=== PATIENT | female | born 1960 | race Caucasian/White ===

== ENCOUNTER 2017-07-07 07:59 | Day surgery (SDC) | payer BC ==
[~2017-07-07 07:59] MED LIST: Lactated Ringers 1,000 ML IV SCH; Lidocaine 1%/Sod Bicarbonate in NS 8.4% 1 ML Syringe PRN; Propofol 200 MG/20 ML SDV ONE; Sodium Chloride 0.9% 10 ML Syringe FLUSH PRN; fentaNYL 100 MCG/2 ML SDV ONE
--- NOTE | 2017-07-07 08:33 | PCM.PREANE ---
Preanesthetic Assessment - Procedure Proposed Procedure: Diagnostic EGD - Anesthesia/Transfusion/Family Hx Anesthesia History: Prior Anesthesia Without Reaction Family History of Anesthesia Reaction: No Transfusion History: No Prior Transfusion(s) - Review of Systems General: No Symptoms Pulmonary: No Symptoms Cardiovascular: No Symptoms Gastrointestinal: Other (GERD) Neurological: Headache (occasional ) Other: Reports: None, Depression, Anxiety - Physical Assessment NPO Status Date: 07/06/17 NPO Status Time: 20:00 O2 Sat by Pulse Oximetry: 97 Respiratory Rate: 16 Vital Signs: Last Vital Signs Temp 36.6 C 07/07/17 08:05 Pulse 66 07/07/17 08:05 Resp 16 07/07/17 08:05 BP 119/76 07/07/17 08:05 Pulse Ox 97 07/07/17 08:05 Height: 1.68 m Weight: 88.541 kg ASA Class: 2 Mental Status: Alert & Oriented x3 Airway Class: Mallampati = 2 Dentition: Reports: Dentures (upper ) Thyro-Mental Finger Breadths: 3 ROM/Head Extension: Full Lungs: Clear to Auscultation, Normal Respiratory Effort Cardiovascular: Regular Rate, Regular Rhythm - Allergies Allergies/Adverse Reactions: Allergies Allergy/AdvReac Type Severity Reaction Status Date / Time Sulfa (Sulfonamide Allergy Other Verified 07/06/17 15:15 Antibiotics) - Blood Blood Available: No Product(s) Available: None - Anesthesia Plan Pre-Op Medication Ordered: None - Acknowledgements Anesthesia Type Planned: MAC Pt an Appropriate Candidate for the Planned Anesthesia: Yes Alternatives and Risks of Anesthesia Discussed w Pt/Guardian: Yes Pt/Guardian Understands and Agrees with Anesthesia Plan: Yes PreAnesthesia Questionnaire HEENT History: Reports: Other (See Below) Other HEENT History: upper plate Cardiovascular History: Reports: None Respiratory History: Reports: None Gastrointestinal History: Reports: Other (See Below) Genitourinary History: Reports: None, Other (See Below) Other Genitourinary History: kidney stones 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) Other OB/BYN History: x 2 Musculoskeletal History: Reports: Osteoarthritis Neurological History: Reports: Migraines, Other (See Below) Other Neuro History: trigeminal neuralgia Psychiatric History: Reports: Anxiety, Depression Endocrine/Metabolic History: Reports: Obesity/BMI 30+ Hematologic History: Reports: None Immunologic History: Reports: None Oncologic (Cancer) History: Reports: None Dermatologic History: Reports: None - Past Surgical History Head Surgeries/Procedures: Reports: None HEENT Surgical History: Reports: LASIK Cardiovascular Surgical History: Reports: None Respiratory Surgical History: Reports: None GI Surgical History: Reports: Appendectomy, Cholecystectomy Female Surgical History: Reports: Section, Hysterectomy, Oophorectomy Endocrine Surgical History: Reports: None Neurological Surgical History: Reports: Other (See Below) Other Neurological Surgeries/Procedures: craniectomy aprox 20 years ago Musculoskeletal Surgical History: Reports: Shoulder Surgery Oncologic Surgical History: Reports: None Dermatological Surgical History: Reports: None - SUBSTANCE USE Smoking Status *Q: Current Every Day Smoker (0.5ppd for 25years) Tobacco Use Within Last Twelve Months: Cigarettes Second Hand Smoke Exposure: No Recreational Drug Use History: No - HOME MEDS Home Medications: Home Meds ALPRAZolam [Xanax] 0.5 mg PO TID PRN 01/28/16 [History] FLUoxetine HCl [Fluoxetine HCl] 80 mg PO DAILY 07/06/17 [History] - CURRENT (IN HOUSE) MEDS Current Meds: Current Medications Lactated Ringer's (Ringers, Lactated) 1,000 mls @ 125 mls/hr IV ASDIRECTED ODALYS Stop: 07/07/17 23:00 Lidocaine/Sodium Bicarbonate (Buffered Lidocaine 1% In Ns 8.4%) 0.25 ml .XX ONETIME PRN PRN Reason: Prior to IV Start Stop: 07/07/17 18:00 Sodium Chloride (Saline Flush) 10 ml FLUSH ASDIRECTED PRN PRN Reason: Keep Vein Open Stop: 07/07/17 18:00 Discontinued Medications Fentanyl (Sublimaze) Confirm Administered Dose 100 mcg .ROUTE .STK-MED ONE Stop: 07/07/17 07:22 Propofol (Diprivan 20 Ml) Confirm Administered Dose 200 mg .ROUTE .STK-MED ONE Stop: 07/07/17 07:22
--- NOTE | 2017-07-07 09:03 | PCM48HPAN ---
Post Anesthesia Note - EVALUATION WITHIN 48HRS OF ANESTHETIC Vital Signs in Normal Range: Yes Patient Participated in Evaluation: Yes Respiratory Function Stable: Yes Airway Patent: Yes Cardiovascular Function Stable: Yes Hydration Status Stable: Yes Pain Control Satisfactory: Yes Nausea and Vomiting Control Satisfactory: Yes Mental Status Recovered: Yes
--- NOTE | 2017-07-07 09:07 | PCM.OPNOTE ---
- General Post-Op/Procedure Note Date of Surgery/Procedure: 07/07/17 Operative Procedure(s): Esophagogastroduodenoscopy with antrum, body of the stomach, GE junction, and proximal esophageal biopsies Findings: 1. Mild gastritis 2. Mild antritis Duodenal gastric bilious reflux. Endoscopically normal esophagus. Pre Op Diagnosis: Difficulty swallowing Post-Op Diagnosis: 1. Antritis and gastritis with duodenal gastric bilious reflux Anesthesia Technique: MAC, Moderate Sedation Primary Surgeon: Ermias Irene Pathology: Antrum, body of esophagus, GE junction, and proximal esophageal biopsies EBL in mLs: 0 Complications: None Condition: Good Free Text/Narrative:: After adequate IV sedation and analgesia was obtained with monitoring the patient was placed on her left side. Through a bite-block a lubricated upper endoscope was easily inserted into the esophagus and advanced under direct vision to the stomach. Additional air was given here. The antrum was identified followed by passed of the scope to the second part of duodenum. The second and first parts were endoscopically normal with no mass lesions or inflammatory changes seen. There were erythematous changes within the antrum which were biopsied twice for histologic review. In the retroflexed view there was mild erythema within the body of the stomach. There was no hiatal hernia. There was significant duodenal gastric bile reflux. Biopsies were taken of the body of the stomach. The scope was then withdrawn to the GE junction which was unremarkable for stricturing or inflammatory changes. Random biopsies were taken for pathology. The body esophagus was unremarkable endoscopically. Because of her history of difficulty swallowing I took 2 biopsies of the proximal esophagus. Photographs were taken for the patient and for the medical record. Air was removed as a finished procedure which she tolerated well.
[2017-07-07 09:45] VITALS: BP 104/59
== END 2017-07-07 09:35 | disposition home or self-care (01) ==
LOC: JD.SDS 07:59
PROVIDERS: ATTEND Surgery
DX: K20.9 Esophagitis, unspecified (principal); K29.50 Unspecified chronic gastritis without bleeding; K31.9 Disease of stomach and duodenum, unspecified; B33.20 Viral carditis, unspecified; F41.9 Anxiety disorder, unspecified; F32.9 Major depressive disorder, single episode, unspecified; Z79.899 Other long term (current) drug therapy; Z88.2 Allergy status to sulfonamides; Z90.49 Acquired absence of other specified parts of digestive tract; Z98.890 Other specified postprocedural states; Z90.710 Acquired absence of both cervix and uterus; F17.210 Nicotine dependence, cigarettes, uncomplicated
CPT/HCPCS: 43239; J3010; J7120; 00740; J2704

== ENCOUNTER 2018-03-27 05:48 | Emergency (ER) | payer BC ==
[2018-03-27 06:01] VITALS: BP 130/79
[2018-03-27] MEDS ORDERED: Tamsulosin 0.4 MG Cap.ER PO ONE (06:50)
[2018-03-27] MEDS ORDERED: Ondansetron 4 MG/2 ML SDV IVPUSH ONE (06:50)
[2018-03-27] MEDS ORDERED: HYDROmorphone 0.5 MG/0.5 ML SYRINGE IVPUSH ONE (06:50)
--- NOTE | 2018-03-27 06:55 | EDM.PDOC ---
<Venkatesh Olvera - Last Filed: 03/27/18 07:53> ED HPI GENERAL MEDICAL PROBLEM - General Chief Complaint: Genitourinary Problem Stated Complaint: URINATING BLOOD Time Seen by Provider: 03/27/18 06:10 Source of Information: Reports: Patient, Family () History Limitations: Reports: No Limitations - History of Present Illness INITIAL COMMENTS - FREE TEXT/NARRATIVE: The patient states that she developed suprapubic and left flank pain, along with urinary urgency and frequency, without dysuria, yesterday morning, Wednesday , 03/26/2018. She took 2 doses of [id number] Azo, and her symptoms improved. She took a single dose of prescription Pyridium today. This morning she developed gross hematuria. No recent fever, nausea, vomiting, constipation, or diarrhea. The patient states that she has had similar symptoms many times in the past. Usually it is due to a UTI, however, she has also been diagnosed with a stone along with a UTI in the past, as well. The patient's PCP is Candida Jimenez. Her Urologist is Dr. Edward. Suprapubic Pain Score (Numeric/FACES): 8 - Related Data Allergies Allergy/AdvReac Type Severity Reaction Status Date / Time Sulfa (Sulfonamide Allergy Other Verified 03/27/18 07:19 Antibiotics) Home Meds: Home Meds ALPRAZolam [Xanax] 0.5 mg PO TID PRN 01/28/16 [History] FLUoxetine HCl [Fluoxetine HCl] 80 mg PO DAILY 07/06/17 [History] Nitrofurantoin Monohyd/M-Cryst [Macrobid 100 mg Capsule] 100 mg PO BID #18 capsule 03/27/18 [Rx] [place]-3/DHA/Epa/Fish Oil [Fish Oil 1,000 mg Softgel] 1 each PO DAILY 03/27/18 [ History] Past Medical History Cardiovascular History: Reports: High Cholesterol Genitourinary History: Reports: Renal Calculus, UTI, 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: Endometriosis, Musculoskeletal History: Reports: Osteoarthritis Neurological History: Reports: Other (See Below) (Trigeminal neuralgia) Psychiatric History: Reports: Anxiety, Depression Endocrine/Metabolic History: Reports: Obesity/BMI 30+ - Past Surgical History Head Surgeries/Procedures: Reports: Craniotomy (for trigeminal neuralgia) HEENT Surgical History: Reports: LASIK, Oral Surgery ([place] teeth extraction) GI Surgical History: Reports: Appendectomy, Cholecystectomy Female Surgical History: Reports: Section (x 2), Hysterectomy, Oophorectomy (left) Musculoskeletal Surgical History: Reports: Shoulder Surgery (left, arthroscopic) Social & Family History - Family History Family Medical History: Noncontributory - Tobacco Use Smoking Status *Q: Current Every Day Smoker Years of Tobacco use: 25 Packs/Tins Daily: 0.5 - Caffeine Use Caffeine Use: Reports: None - Alcohol Use Alcohol Use History: Yes Alcohol Use Frequency: Socially - Recreational Drug Use Recreational Drug Use: No - Living Situation & Occupation Living situation: Reports: , with Spouse Occupation: Retired ED ROS GENERAL - Review of Systems Review Of Systems: ROS reveals no pertinent complaints other than HPI. ED EXAM, RENAL/ - Physical Exam Exam: See Below Exam Limited By: No Limitations General Appearance: Alert, WD/WN, No Apparent Distress Eye Exam: Bilateral Eye: Normal Inspection Ears: Normal External Exam, Hearing Grossly Normal Nose: Normal Inspection, No Blood Throat/Mouth: Normal Inspection, Normal Lips, Normal Voice, No Airway Compromise Head: Atraumatic, Normocephalic Neck: Normal Inspection, Full Range of Motion Respiratory/Chest: No Respiratory Distress, Lungs Clear, Normal Breath Sounds, No Accessory Muscle Use Cardiovascular: Normal Peripheral Pulses, Regular Rate, Rhythm, No Gallop, No JVD, No Murmur, No Rub GI/Abdominal: Normal Bowel Sounds, Soft, No Organomegaly, No Distention, No Abnormal Bruit, No Mass, Tender (Mild, suprapubic only. Nontender elsewhere.) (Female) Exam: Deferred Rectal (Female) Exam: Deferred Back Exam: Normal Inspection, Full Range of Motion, CVA Tenderness (L). No: CVA Tenderness (R) Extremities: Normal Inspection, Normal Range of Motion, No Pedal Edema, Normal Capillary Refill Neurological: Alert, Oriented, Normal Cognition, No Motor/Sensory Deficits Psychiatric: Normal Affect Skin Exam: Warm, Dry, Intact, Normal Color, No Rash Course - Vital Signs Last Recorded V/S: Last Vital Signs Temp 36.3 C 03/27/18 06:00 Pulse 67 03/27/18 06:00 Resp 16 03/27/18 06:00 BP 130/79 03/27/18 06:00 Pulse Ox 100 06/17/18 06:00 - Orders/Labs/Meds Orders: Active Orders 24 hr Category Date Time Status Strain Urine [RC] ASDIRECTED Care 03/27/18 06:51 Active Abdomen Pelvis wo Cont [CT] Stat Exams 03/27/18 06:50 Taken CULTURE URINE [RM] Stat Lab 03/27/18 06:30 Received UA W/MICROSCOPIC [URIN] Stat Lab 03/27/18 06:30 Ordered Sodium Chloride 0.9% [Normal Saline] 1,000 ml Med 03/27/18 07:00 Active IV ASDIRECTED Medication Orders Sodium Chloride (Normal Saline) 1,000 mls @ 150 mls/hr IV ASDIRECTED ODALYS Last Admin: 03/27/18 07:09 Dose: 150 mls/hr Labs: Laboratory Tests 03/27/18 Range/Units 06:30 Urine Color [place] H (Yellow) Urine Appearance Clear (Clear) Urine pH 5.0 (5.0-8.0) Ur Specific [place] 1.010 (1.005-1.030) Urine Protein 2+ H (Negative) Urine Glucose (UA) Trace H (Negative) Urine Ketones Trace H (Negative) Urine Occult Blood 3+ H (Negative) Urine Nitrite Positive H (Negative) Urine Bilirubin 1+ H (Negative) Urine Urobilinogen 2.0 H (0.2-1.0) Ur Leukocyte Esterase 3+ H (Negative) Urine RBC 40-50 H (0-5) /hpf Urine WBC >100 H (0-5) /hpf Ur Epithelial Cells 5-10 H (0-5) /hpf Urine Bacteria Many H (FEW) /hpf Urine Mucus Not seen (FEW) /hpf Meds: Medications Generic Name Dose Route Start Last Admin Trade Name Freq PRN Reason Stop Dose Admin Sodium Chloride 1,000 mls @ 150 mls/hr 03/27/18 07:00 03/27/18 07:09 Normal Saline IV 150 mls/hr ASDIRECTED ODALYS Administration Discontinued Medications Generic Name Dose Route Start Last Admin Trade Name Freq PRN Reason Stop Dose Admin Hydromorphone HCl 0.5 mg 03/27/18 06:50 03/27/18 07:11 Dilaudid IVPUSH 03/27/18 06:51 0.5 mg ONETIME ONE Administration Levofloxacin 750 mg 03/27/18 07:02 06/17/18 07:17 Levaquin PO 03/27/18 07:03 750 mg ONETIME STA Administration Ondansetron HCl 4 mg 03/27/18 06:50 03/27/18 07:10 Zofran IVPUSH 03/27/18 06:51 4 mg ONETIME ONE Administration Tamsulosin HCl 0.4 mg 03/27/18 06:50 03/27/18 07:10 Flomax PO 03/27/18 06:51 0.4 mg ONETIME ONE Administration - Re-Assessments/Exams Free Text/Narrative Re-Assessment/Exam: 03/27/18 07:03 The patient's urinalysis is consistent with a UTI. I have ordered a urine culture, and we'll start her on empiric Levaquin. A CT scan of her abdomen and pelvis without contrast has been ordered, to evaluate for a ureterolith, and we will strain her urine in the meantime. I have ordered IV fluid, IV Dilaudid, IV Zofran, and oral Flomax. Case discussed with Dr. Guerrero, and care of the patient turned over to him at this time, for change of shift. Departure - Departure Disposition: Home, Self-Care 01 Clinical Impression: UTI, Urinary tract infectious disease, Constipation by delayed colonic transit - Discharge Information Prescriptions: Nitrofurantoin Monohyd/M-Cryst [Macrobid 100 mg Capsule] 100 mg PO BID #18 capsule Instructions: Urinary Tract Infection, Adult Referrals: Candida Jimenez NP [Primary Care Provider] - Forms: ED Department Discharge Additional Instructions: Evaluation the emergency room today in regards to severe lower abdominal suprapubic pressure discomfort with bloody urine. Testing reveals the urine is filled with blood and pus cells suggestive of an infective process. Due to recent history of kidney stones a CT of the abdomen and pelvis was performed. The reveals 14-5 mm stone within the left renal tissue. [place] or obstructing the ureters at this time. Therefore this is a straightforward urinary tract infection which is likely involving the ureter on its way up to the kidney. Treatment was started in the ER with intravenous Levaquin antibiotic. Treatment at home was plenty of fluids. Diet as tolerated. Motrin 600 mg every 6 hours as needed for pain relief and/or fever relief. Buttock is to be Macrobid 100 [place] grams twice daily for the next 9 days with first tablet to be taken tonight after supper. Expect marked improvement over the next 12-24 hours. Of note on CT scan it did reveal there is increased stool throughout the entire colon compatible with constipation. I would suggest starting MiraLAX powder 17 g or 1 scoop twice today and 1 scoop daily for the next 5 days to cleanse the bowel. <Edvin Guerrero - Last Filed: 03/27/18 08:11> Course - Re-Assessments/Exams Free Text/Narrative Re-Assessment/Exam: 03/27/18 08:00 care is been assumed from Dr. Varela change of shift. CT scan of the abdomen and pelvis was reviewed. It reveals no signs of hydronephrosis. There is a 45 mm stone within the left renal parenchyma. The ureters are not dilated. No stones or within the distal ureters or bladder. She therefore appears to have straightforward upper urinary tract infection without significant elevation of her white blood cell count. Initial dose of antibiotic was provided to the ED height Levaquin IV. Discharged on Macrobid 100 mg twice daily for another 9 days to clear up urinary tract infection. Departure - Departure Time of Disposition: 08:02 Condition: Fair
[2018-03-27] MEDS ORDERED: Sodium Chloride 0.9% 1,000 ML IV SCH (07:00)
[2018-03-27] MEDS ORDERED: Levofloxacin 750 MG Tab PO STA (07:02)
--- NOTE | 2018-03-28 08:26 | CT ---
CT abdomen and pelvis Technique: Multiple axial sections were obtained from above the dome of the diaphragm inferiorly through the pubic symphysis. Intravenous and oral contrast was not utilized. Study has been performed as a ureteral stone protocol. Comparison: Prior CT abdomen and pelvis exam performed with IV contrast dated 11/02/16. Findings: Left kidney shows a small nonobstructing stone measuring about 5 mm. Kidneys show no additional calcifications. No ureteral dilatation or ureteral stone is seen. Prior CT exam showed an obstructing stone at the right UPJ which is no longer seen. No bladder calculi are seen. Visualized lung bases show nothing acute. Liver shows no focal parenchymal abnormality. Spleen appears within normal limits. Previous cholecystectomy is seen. Common bile duct is slightly prominent most likely residual from prior cholecystectomy. Adrenal glands show no nodule. Pancreas is normal. Aorta shows no aneurysmal dilatation. No retroperitoneal adenopathy or mesenteric abnormalities are seen. Several slightly prominent loops of small bowel are seen which are believed to be within normal limits. Mild increased stool noted throughout the colon. No free fluid or inflammatory change is seen. Bone window settings were reviewed which show degenerative change at L4-L5 within the apophyseal joints causing mild spondylolisthesis. Vacuum phenomena seen within the L5-S1 disc with degenerative change seen within the apophyseal joints. Impression: 1. Nonobstructing stone within the left kidney. 2. No ureteral dilatation or ureteral stone is seen. 3. Other findings as noted above believed to be incidental. Diagnostic code #2 I agree with preliminary report from [facility], finalized at 03/27/18, 9:08 AM Central Time
== END 2018-03-27 08:35 | disposition home or self-care (01) ==
LOC: JD.ED 05:48
DX: N39.0 Urinary tract infection, site not specified (principal); K59.01 Slow transit constipation; E66.9 Obesity, unspecified; F17.210 Nicotine dependence, cigarettes, uncomplicated; Z88.2 Allergy status to sulfonamides; Z79.899 Other long term (current) drug therapy
CPT/HCPCS: 74176; 81001; 87086; 87088; 87186; 96361; 96374; 96375; 99284; A9270; J1170; J2405; J7040; 99283

== ENCOUNTER 2018-12-01 06:12 | Inpatient (IN) | payer BC ==
[~2018-12-01 06:12] MED LIST changes: +Acetaminophen 325 MG Tab PO SCH; -Lactated Ringers 1,000 ML IV SCH; -Lidocaine 1%/Sod Bicarbonate in NS 8.4% 1 ML Syringe PRN; +Pregabalin 25 MG Cap PO SCH; -Propofol 200 MG/20 ML SDV ONE; -Sodium Chloride 0.9% 10 ML Syringe FLUSH PRN; -fentaNYL 100 MCG/2 ML SDV ONE; +oxyCODONE ER 10 MG TAB.ER PO SCH
[2018-12-01] MEDS ORDERED: Lidocaine 1% 0 ML ONE (06:21)
[2018-12-01] MEDS ORDERED: fentaNYL 100 MCG/2 ML SDV ONE (06:22)
[2018-12-01] MEDS ORDERED: Midazolam 1 MG/ML 2 ML SDV ONE (06:22)
[2018-12-01] MEDS ORDERED: Propofol 200 MG/20 ML SDV ONE (06:22)
[2018-12-01] MEDS ORDERED: ceFAZolin 1 GM Vial ONE ×2 (06:25→06:38)
[2018-12-01] MEDS ORDERED: Vancomycin 1 GM SDV ONE (06:38)
[2018-12-01] MEDS ORDERED: Iodine/Sodium Iodide 2% Tincture 30 ML Bottle ONE (06:38)
--- NOTE | 2018-12-01 06:43 | PCM.PREANE ---
Preanesthetic Assessment - Procedure Proposed Procedure: left knee replacement - Anesthesia/Transfusion/Family Hx Anesthesia History: Prior Anesthesia Without Reaction Family History of Anesthesia Reaction: No Transfusion History: No Prior Transfusion(s) - Review of Systems General: No Symptoms Pulmonary: No Symptoms Cardiovascular: No Symptoms Gastrointestinal: No Symptoms Neurological: No Symptoms Other: Reports: Neck Pain (from an old injury), Depression, Anxiety - Physical Assessment NPO Status Date: 11/30/18 NPO Status Time: 20:00 (sip of water with am pills) O2 Sat by Pulse Oximetry: 97 Respiratory Rate: 16 Vital Signs: Last Vital Signs Temp 97.8 F 12/01/18 06:20 Pulse 70 12/01/18 06:20 Resp 16 12/01/18 06:20 BP 113/80 12/01/18 06:20 Pulse Ox 97 12/01/18 06:20 Height: 5 ft 6 in Weight: 87.997 kg ASA Class: 2 Mental Status: Alert & Oriented x3 Airway Class: Mallampati = 2 Dentition: Reports: Dentures (top) Thyro-Mental Finger Breadths: 3 Mouth Opening Finger Breadths: 3 ROM/Head Extension: Full Lungs: Clear to Auscultation, Normal Respiratory Effort Cardiovascular: Regular Rate, Regular Rhythm - Allergies Allergies/Adverse Reactions: Allergies Allergy/AdvReac Type Severity Reaction Status Date / Time bupropion Allergy Headache Verified 11/30/18 15:42 meloxicam Allergy Nausea Verified 11/30/18 15:42 nitrofurantoin Allergy Nausea Verified 11/30/18 15:42 [From Macrobid] Sulfa (Sulfonamide Allergy Rash Verified 11/30/18 15:42 Antibiotics) sulfamethoxazole Allergy Rash Verified 11/30/18 15:42 [From Bactrim] trimethoprim [From Bactrim] Allergy Rash Verified 11/30/18 15:42 - Blood Blood Available: No - Acknowledgements Anesthesia Type Planned: Spinal Pt an Appropriate Candidate for the Planned Anesthesia: Yes Alternatives and Risks of Anesthesia Discussed w Pt/Guardian: Yes Pt/Guardian Understands and Agrees with Anesthesia Plan: Yes PreAnesthesia Questionnaire HEENT History: Reports: Other (See Below) Other HEENT History: upper plate, oral muscosal lesion Respiratory History: Reports: None Gastrointestinal History: Reports: GERD (at times), Other (See Below) Other Gastrointestinal History: c diff Genitourinary History: Reports: Renal Calculus, UTI, Recurrent Other Genitourinary History: kidney stones, pylenonephritis, hematuria, hydronephrosis 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, Other OB/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 History: x 2 Neurological History: Reports: Migraines, Other (See Below) Other Neuro History: trigeminal neuralgia Psychiatric History: Reports: Anxiety, Depression Endocrine/Metabolic History: Reports: Obesity/BMI 30+ Hematologic History: Reports: None Immunologic History: Reports: None Oncologic (Cancer) History: Reports: None Dermatologic History: Reports: None - Past Surgical History Head Surgeries/Procedures: Reports: Craniotomy HEENT Surgical History: Reports: LASIK, Oral Surgery Cardiovascular Surgical History: Reports: None Respiratory Surgical History: Reports: None GI Surgical History: Reports: Appendectomy, Cholecystectomy Female Surgical History: Reports: Section, Hysterectomy, Oophorectomy Endocrine Surgical History: Reports: None Neurological Surgical History: Reports: Other (See Below) Other Neurological Surgeries/Procedures: craniectomy aprox 20 years ago Musculoskeletal Surgical History: Reports: Shoulder Surgery, Other (See Below) ( 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) Oncologic Surgical History: Reports: None Dermatological Surgical History: Reports: None - SUBSTANCE USE Smoking Status *Q: Current Some Day Smoker Tobacco Use Within Last Twelve Months: Cigarettes Second Hand Smoke Exposure: Yes Days Per Week of Alcohol Use: 1 (rare) Recreational Drug Use History: No - HOME MEDS Home Medications: Home Meds ALPRAZolam [Xanax] 0.5 mg PO TID PRN 01/28/16 [History] FLUoxetine HCl [Fluoxetine HCl] 80 mg PO DAILY 07/06/17 [History] [place]-3/DHA/Epa/Fish Oil [Fish Oil 1,000 mg Softgel] 1 each PO DAILY 03/27/18 [ History] Cholecalciferol (Vitamin D3) [Vitamin D3] 5,000 unit PO DAILY 11/30/18 [History] Cranberry Extract [Cranberry] 500 mg PO DAILY 11/30/18 [History] Estradiol [Estrace 0.01% Vaginal Crm] 1 dose VAG Q72H 11/30/18 [History] Hydrocodone/Acetaminophen [Hydrocodon-Acetaminophen 5-325] 1 tab OP Q4H PRN [History] - CURRENT (IN HOUSE) MEDS Current Meds: Current Medications Acetaminophen (Tylenol) 975 mg PO ONETIME [facility] Stop: 12/01/18 14:00 Last Admin: 12/01/18 06:29 Dose: 975 mg Bisacodyl (Dulcolax) 5 mg PO DAILY PRN PRN Reason: Constipation Morphine Sulfate 8 mg/Epinephrine HCl 0.3 mg/Cefuroxime Sodium 750 mg/Ketorolac Tromethamine 30 mg/Sodium Chloride 27.9 ml 0 mg .XX ONETIME ONE Stop: 12/01/18 06:16 Cyclobenzaprine HCl (Flexeril) 10 mg PO TID PRN PRN Reason: Spasms Docusate Sodium (Colace) 100 mg PO BID ODALYS Famotidine (Pepcid) 20 mg PO Q12H [facility] Lactated Ringer's (Ringers, Lactated) 1,000 mls @ 125 mls/hr IV ASDIRECTED [facility] Stop: 12/01/18 23:00 Cefazolin Sodium/Dextrose 2 gm (/ Premix) 50 mls @ 100 mls/hr IV Q8H [facility] Stop: 12/01/18 22:44 Ketorolac Tromethamine (Toradol) 15 mg IVPUSH Q6H PRN PRN Reason: Pain Lidocaine/Sodium Bicarbonate (Buffered Lidocaine 1% In Ns 8.4%) 0.25 ml IDERM ONETIME PRN PRN Reason: Prior to IV Start Stop: 12/01/18 18:00 Magnesium Hydroxide (Milk Of Magnesia) 30 ml PO BID PRN PRN Reason: Constipation Morphine Sulfate (Morphine) 2 mg IVPUSH Q2H PRN PRN Reason: Breakthrough Pain Naloxone HCl (Narcan) 0.1 mg IVPUSH Q5M PRN PRN Reason: Oversedation Ondansetron HCl (Zofran) 4 mg IVPUSH Q6H PRN PRN Reason: Nausea/Vomiting Oxycodone HCl (Oxycontin) 10 mg PO ONETIME [facility] Stop: 12/01/18 14:00 Last Admin: 12/01/18 06:28 Dose: 10 mg Oxycodone/Acetaminophen (Percocet 325-5 Mg) 1 - 2 tab PO Q4H PRN PRN Reason: Pain Pregabalin (Lyrica) 50 mg PO ONETIME [facility] Stop: 12/01/18 14:00 Last Admin: 02/21/19 06:28 Dose: 50 mg Rivaroxaban (Xarelto) 10 mg PO DAILY ODALYS Senna (Senna) 8.6 mg PO BID PRN PRN Reason: Constipation Sodium Chloride (Saline Flush) 10 ml FLUSH ASDIRECTED PRN PRN Reason: Keep Vein Open Stop: 12/01/18 18:00 Discontinued Medications Cefazolin Sodium (Ancef) Confirm Administered Dose 2 gm .ROUTE .STK-MED ONE Stop: 12/01/18 06:26 Fentanyl (Sublimaze) Confirm Administered Dose 100 mcg .ROUTE .STK-MED ONE Stop: 12/01/18 06:23 Lidocaine HCl (Xylocaine-Mpf 1%) Confirm Administered Dose 2 mls @ as directed .ROUTE .STK-MED ONE Stop: 12/01/18 06:22 Midazolam HCl (Versed 1 Mg/Ml) Confirm Administered Dose 2 mg .ROUTE .STK-MED ONE Stop: 12/01/18 06:23 Propofol (Diprivan 20 Ml) Confirm Administered Dose 600 mg .ROUTE .STK-MED ONE Stop: 12/01/18 06:23
[2018-12-01] MEDS ORDERED: Ropivacaine 0.5% 5 MG/ML 30 ML SDV ONE (06:48)
[2018-12-01] MEDS ORDERED: EPINEPHrine 1 MG/ML SDV ONE (06:48)
[2018-12-01] MEDS ORDERED: Bupivacaine 0.25% 30 ML SDV ONE (06:49)
[2018-12-01] MEDS ORDERED: Lactated Ringers 1,000 ML IV SCH (07:00)
[2018-12-01] MEDS ORDERED: Lidocaine 1%/Sod Bicarbonate in NS 8.4% 1 ML Syringe IDERM PRN (07:00)
[2018-12-01] MEDS ORDERED: Sodium Chloride 0.9% 10 ML Syringe FLUSH PRN (07:00)
[2018-12-01] MEDS ORDERED: Lactated Ringers 1,000 ML ONE ×2 (07:16→08:28)
[2018-12-01] MEDS ORDERED: fentaNYL 100 MCG/2 ML SDV IVPUSH PRN (07:27)
[2018-12-01] MEDS ORDERED: Ondansetron 4 MG/2 ML SDV IVPUSH PRN ×2 (07:33→09:30)
[2018-12-01] MEDS ORDERED: ePHEDrine/Normal Saline 25 MG/5 ML Syringe ONE (07:36)
[2018-12-01] MEDS ORDERED: Morphine 8 MG, EPINEPHrine 0.3 MG, Cefuroxime 750 MG, Ketorolac 30 MG, Sodium Chloride ... ONE ×5 (07:45)
[2018-12-01] MEDS ORDERED: Phenylephrine/Normal Saline 100 MCG/ML 10 ML Syringe ONE (07:50)
[2018-12-01] MEDS ORDERED: Ketorolac 30 MG/ML SDV ONE (07:58)
[2018-12-01] MEDS ORDERED: Ondansetron 4 MG/2 ML SDV ONE (08:12)
[2018-12-01] MEDS ORDERED: ALPRAZolam 0.5 MG Tab PO PRN (08:27)
--- NOTE | 2018-12-01 08:49 | PCM.POSTAN ---
POST ANESTHESIA ASSESSMENT - MENTAL STATUS Mental Status: Alert, Oriented - VITAL SIGNS Pulse Rate: 80 SaO2: 92 Resp Rate: 14 Blood Pressure: 95/57 Temperature: 98.5 F - RESPIRATORY Respiratory Status: Respiratory Rate WNL, Airway Patent, O2 Saturation Stable, Supplemental Oxygen - CARDIOVASCULAR CV Status: Pulse Rate WNL, Blood Pressure Stable - GASTROINTESTINAL GI Status: No Symptoms - PAIN Pain Score: 0 - POST OP HYDRATION Hydration Status: Adequate & Stable
--- NOTE | 2018-12-01 09:09 | PCM.SN ---
- Free Text/Narrative Note: Left selective femoral nerve block at the adductor canal for post-procedure pain control under US guidance requested by Dr. Zapata. Time Out: 852 Start: 856 End: 902 Chart reviewed. Consent signed. Questions answered. Appropriate monitors applied. Time out performed. Left mid-shaft femur identified with ultrasound, scanning medially of femur, the femoral artery in the adductor canal visualized , and the femoral nerve located laterally to the artery. The skin was prepped lateral to the ultrasound probe with chlorahexadine times two. The 21ga 4 insulated block needle was inserted under direct ultrasound guidance into the adductor canal. 30mL of 0.5% ropivacaine with 1:200,000 epinephrine was injected circumferentially around the nerve with intermittent negative aspiration noted. Patient tolerated the procedure well. Sterile technique noted along with sterile gloves, mask, and sterile probe cover. See picture on progress note and vital signs on nurses notes. Block completed in PACU. Saqib Rizvi CRNA
[2018-12-01] MEDS ORDERED: Naloxone 0.4 MG/ML SDV IVPUSH PRN (09:30)
[2018-12-01] MEDS ORDERED: Magnesium Hydroxide 400 MG/5 ML Susp 30 ML Cup PO PRN (09:30)
[2018-12-01] MEDS ORDERED: Bisacodyl 5 MG Tab PO PRN (09:30)
[2018-12-01] MEDS ORDERED: Morphine 2 MG/ML Syringe IVPUSH PRN (09:30)
[2018-12-01] MEDS ORDERED: Sennosides 8.6 MG Tab PO PRN (09:30)
--- NOTE | 2018-12-01 09:55 | CR ---
Left knee: AP and lateral views of the left knee were obtained. Comparison: No prior knee exam. Knee prosthesis is seen. Components are aligned. Underlying bony structures are intact. Soft tissue air is noted. Impression: 1. Satisfactory postop radiographic appearance of recently placed left knee prosthesis. Diagnostic code #2
--- NOTE | 2018-12-01 10:23 | PCM.OPNOTE ---
- General Post-Op/Procedure Note Date of Surgery/Procedure: 12/01/18 Operative Procedure(s): left total knee arthroplasty Pre Op Diagnosis: left knee osteoarthrosis Post-Op Diagnosis: Same Anesthesia Technique: Local, MAC, Spinal Primary Surgeon: Joreg L Zapata Anesthesia Provider: Saqib Rizvi Manufacturing Mechanic: Melissa Sheriff Manufacturing Mechanic: Jena Phoenix EBL in mLs: 600 Complications: None Condition: Good Free Text/Narrative:: Intake & Output 11/30/18 12/01/18 12/01/18 22:59 06:59 14:59 Intake Total 640 Balance 640 size 5 femur size 4 tibia 9mm 35x10
--- NOTE | 2018-12-01 10:50 | OR ---
DATE OF OPERATION: 12/01/2018 SURGEON: Jorge L Zapata MD OPERATION PERFORMED: Left total knee arthroplasty. PREOPERATIVE DIAGNOSIS: Left knee osteoarthrosis. POSTOPERATIVE DIAGNOSIS: Left knee osteoarthrosis. ANESTHESIA: Local MAC with spinal. ANESTHESIA PROVIDER: Saqib Rizvi CRNA. FACILITIES PLANT ENGINEER: Melissa Sheriff PA-C and Jena Phoenix LPN. ESTIMATED BLOOD LOSS: 600 mL. COMPLICATIONS: None. CONDITION: Stable. IMPLANTS: 1. Bardwell size 5 press-fit CR femur. 2. Janki size 4 press-fit tibial base plate. 3. Bardwell size 4, 9 mm CS polyethylene insert. 4. Bardwell size 35 x 10 mm press fit patella. DESCRIPTION OF PROCEDURE: The patient was identified in the preop holding area. Proper site was marked and identified by the surgeon. The patient was taken back to the operating theater. After adequate anesthesia, the patient's left lower extremity had a nonsterile tourniquet applied and it was sterilely prepped and draped in the usual sterile fashion. OR time-out was performed. The patient received 2 g IV Ancef. At this time, the left lower extremity was exsanguinated. Tourniquet was insufflated to 300 mmHg. Standard medial parapatellar incision was made. Medial parapatellar arthrotomy was created. Deep fibers of the MCL were raised and anterior fat pad was resected. At this time, attention was turned to the patella. Patella measured 24, it was resected to a 14 for 35 x 10 mm patella. Drill holes were then drilled and found to be in adequate position. The drill was then drilled in the distal femur and the intramedullary distal femoral cutting guide was then placed. 8 mm was resected off the distal femur and was found to be an adequate resection. Sizing guide was placed. It was found to be a size 5 press-fit CR femur that was shown on the implant record at the beginning of this dictation. The drill holes were drilled for the epicondylar axis using Whitesides line and epicondyles as reference. At this time, the 4-in - 1 cutting block was placed. An anterior posterior and anterior and posterior chamfer cuts were then completed. Attention was turned to the tibia. The posterior medial lateral retractors were placed. The extramedullary tibial guide was placed. It was placed in the old footprint of the ACL. It was aligned with the center of the ankle and 0 degrees of slope, 9 mm was then resected off the unaffected side. There was found to be an acceptable reduction. At this time, posterior osteophytes were removed along with medial and lateral meniscus. A trial implant was placed with a correct sized tibia that was mentioned at the beginning of the dictation. A Bardwell size 4, 9 mm CS polyethylene insert was then placed. The patient's knee was brought through range of motion. The patella was tracking centrally and was stable to varus and valgus stress. Alignment was found to be roughly at 0 degrees. The tibia was stamped and drilled in proper rotation. The universal tibial base plate was impacted in place. Next, the Janki size 5 press-fit CR femur impacted into place and the Bardwell size 4, 9 mm CS polyethylene insert was placed. The patient's knee was brought into full extension. The patella was then press-fit in place at this time. Tourniquet was deflated. One liter dilute Betadine solution was irrigated through the knee along with 3 L of pulse lavage irrigation with Ancef. Periarticular injection was then completed. The patient's knee was brought through a range of motion. Knee was found to be stable to varus valgus stress, the patella was tracking centrally with full range of motion. At this time, a #2 barbed suture was used for closure of the medial parapatellar arthrotomy. Topical tranexamic acid was placed. 2-0 Vicryl was used subcutaneously, Prineo was used for the skin. The patient tolerated the procedure well and was sent to the PACU in stable condition. DARLINE /[id number] NICOLÁS
[2018-12-01] MEDS: Acetaminophen/oxyCODONE 325-5 MG Tab PO PRN ×4 (11:16→19:54)
[2018-12-01] MEDS: Cyclobenzaprine 10 MG Tab PO PRN ×2 (11:17→19:37)
[2018-12-01] MEDS: Ketorolac 15 MG/ML SDV IVPUSH PRN (15:11)
[2018-12-01] MEDS: ceFAZolin 2 GM in Premix Bag 1 BAG IV SCH ×2 (15:13→23:14)
--- NOTE | 2018-12-01 18:15 | PCM.CONS ---
H&P History of Present Illness - General Date of Service: 12/01/18 Admit Problem/Dx: Admission Diagnosis/Problem Admission Diagnosis/Problem Osteoarthritis of knee Source of Information: Patient, Provider History Limitations: Reports: No Limitations - History of Present Illness Initial Comments - Free Text/Narative: Dolores is a 58 yo female patient of Dr. Zapata who is post-operative day 0 of L TKA. Hospital medicine was consulted for post-operative medical care. At this time she is stable. Pain is controlled. States 2/10 at rest and 8/10 with movement. She denies any chest pain, shortness of breath, palpitations, nausea, vomiting. She carries a history of: GERD, Cdiff, UTI, Renal Calculus, Endometriosis, Migraines, Trigeminal Neuralgia, Depression, Anxiety, Obesity/ BMI 30+. She is a full code. Her PCP is JOSE Escalera. Current some day smoker. Left Knee Pain Score (Numeric/FACES): 0 - Related Data Allergies/Adverse Reactions: Allergies Allergy/AdvReac Type Severity Reaction Status Date / Time Sulfa (Sulfonamide Allergy Rash Verified 11/30/18 15:42 Antibiotics) sulfamethoxazole Allergy Rash Verified 11/30/18 15:42 [From Bactrim] trimethoprim [From Bactrim] Allergy Rash Verified 11/30/18 15:42 bupropion AdvReac Headache Verified 12/01/18 07:07 meloxicam AdvReac Nausea Verified 12/01/18 07:07 nitrofurantoin AdvReac Nausea Verified 12/01/18 07:07 [From Macrobid] Home Medications: Home Meds ALPRAZolam [Xanax] 0.5 mg PO TID PRN 01/28/16 [History] FLUoxetine HCl [Fluoxetine HCl] 80 mg PO DAILY 07/06/17 [History] Cholecalciferol (Vitamin D3) [Vitamin D3] 5,000 unit PO DAILY 11/30/18 [History] Estradiol [Estrace 0.01% Vaginal Crm] 1 dose VAG Q72H 11/30/18 [History] Acetaminophen/oxyCODONE [Percocet 325-5 MG] 1 - 2 tab PO Q6H PRN #60 tablet [Rx] Bisacodyl [Dulcolax] 5 mg PO DAILY PRN tablet 12/01/18 [Rx] Cyclobenzaprine [Flexeril] 10 mg PO TID PRN #40 tablet 12/01/18 [Rx] Docusate Sodium [Colace] 100 mg PO BID cap 12/01/18 [Rx] Famotidine [Pepcid] 20 mg PO Q12H tablet 12/01/18 [Rx] Magnesium Hydroxide [Milk of Magnesia] 30 ml PO BID PRN cup 12/01/18 [Rx] Rivaroxaban [Xarelto] 10 mg PO DAILY #30 tablet 12/01/18 [Rx] Sennosides [Senna] 8.6 mg PO BID PRN tablet 12/01/18 [Rx] Past Medical History HEENT History: Reports: Other (See Below) Other HEENT History: upper plate, oral muscosal lesion Cardiovascular History: Reports: High Cholesterol Respiratory History: Reports: None Gastrointestinal History: Reports: GERD, Other (See Below) Other Gastrointestinal History: c diff Genitourinary History: Reports: Renal Calculus, UTI, Recurrent Other Genitourinary History: kidney stones, pylenonephritis, hematuria, hydronephrosis 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: Endometriosis, Other OB/BYN History: x 2 Musculoskeletal History: Reports: Arthritis, Osteoarthritis Neurological History: Reports: Migraines, Other (See Below) Other Neuro History: trigeminal neuralgia=surgery, see HEENT Psychiatric History: Reports: Anxiety, Depression Endocrine/Metabolic History: Reports: Obesity/BMI 30+ Hematologic History: Reports: None Immunologic History: Reports: None Oncologic (Cancer) History: Reports: None Dermatologic History: Reports: None - Infectious Disease History Infectious Disease History: Reports: C-Difficile Other Infectious Disease History: 2016 - Past Surgical History Head Surgeries/Procedures: Reports: Craniotomy HEENT Surgical History: Reports: LASIK, Oral Surgery, Other (See Below) Other HEENT Surgeries/Procedures: surgical "buffer" placed between trigeminal nerve and proximal blood vessels that were pressing into it. Cardiovascular Surgical History: Reports: None Respiratory Surgical History: Reports: None GI Surgical History: Reports: Appendectomy, Cholecystectomy Female Surgical History: Reports: Section, Hysterectomy, Oophorectomy Endocrine Surgical History: Reports: None Neurological Surgical History: Reports: Other (See Below) Other Neurological Surgeries/Procedures: craniectomy aprox 20 years ago Musculoskeletal Surgical History: Reports: Shoulder Surgery, Other (See Below) Oncologic Surgical History: Reports: None Dermatological Surgical History: Reports: None Social & Family History - Family History Family Medical History: Noncontributory - Tobacco Use Smoking Status *Q: Current Some Day Smoker Years of Tobacco use: 27 Packs/Tins Daily: 0.2 Used Tobacco, but Quit: Yes Month/Year Tobacco Last Used: October 2018 Second Hand Smoke Exposure: Yes - Caffeine Use Caffeine Use: Reports: Soda - Alcohol Use Days Per Week of Alcohol Use: 1 (rare) - Recreational Drug Use Recreational Drug Use: No - Living Situation & Occupation Living situation: Reports: , with Spouse Occupation: Retired H&P Review of Systems - Review of Systems: Review Of Systems: See Below General: Reports: No Symptoms. Denies: Fever, Chills HEENT: Reports: No Symptoms Pulmonary: Reports: Shortness of Breath. Denies: Cough Cardiovascular: Reports: No Symptoms. Denies: Chest Pain Gastrointestinal: Reports: No Symptoms. Denies: Abdominal Pain, Diarrhea, Nausea, Vomiting Genitourinary: Reports: No Symptoms. Denies: Dysuria, Frequency, Burning, Pain , Urgency Musculoskeletal: Reports: No Symptoms Skin: Reports: No Symptoms Psychiatric: Reports: No Symptoms Neurological: Reports: No Symptoms Hematologic/Lymphatic: Reports: No Symptoms Immunologic: Reports: No Symptoms Exam - Exam Exam: See Below - Vital Signs Vital Signs: Last Vital Signs Temp 98.2 F 12/01/18 15:58 Pulse 81 12/01/18 15:58 Resp 16 12/01/18 15:58 BP 93/49 L 12/01/18 15:58 Pulse Ox 95 12/01/18 15:58 Weight: 194 lb - Exam Quality Assessment: Supplemental Oxygen, DVT Prophylaxis General: Alert, Oriented, Cooperative HEENT: Conjunctiva Clear, EACs Clear, EOMI, Hearing Intact, Mucosa Moist & [place] , Nares Patent, Normal Nasal Septum, Posterior Pharynx Clear, PERRLA Neck: Supple, Trachea Midline, 2 Lungs: Clear to Auscultation, Normal Respiratory Effort Cardiovascular: Regular Rate, Regular Rhythm GI/Abdominal Exam: Normal Bowel Sounds, Soft, Non-Tender, No Organomegaly, No Distention, No Abnormal Bruit, No Mass, Pelvis Stable (Female) Exam: Deferred Rectal (Female) Exam: Deferred Back Exam: Normal Inspection Extremities: Normal Inspection, Non-Tender, No Pedal Edema, Normal Capillary Refill, Limited Range of Motion (s/p L TKA), Other (Joint pain s/p L TKA) Peripheral Pulses: 2+: Posterior Tibial (L), Posterior Tibial (R), Dorsalis Pedis (L), Dorsalis Pedis (R) Skin: Warm, Dry, Intact, Other (bandage dry and intact) Neurological: Cranial Nerves Intact (grossly) Neuro Extensive - Mental Status: Alert, Oriented x3, Normal Mood/Affect, Normal Cognition, Memory Intact Psychiatric: Alert, Normal Affect, Normal Mood Consult PN Assessment/Plan POD#: 0 Procedures: Procedures ASSAY OF LIPASE (01/28/16) COMPLETE CBC W/AUTO DIFF WBC (01/28/16) COMPREHEN METABOLIC PANEL (01/28/16) CT ABD & PELVIS W/O CONTRAST (03/27/18) CULTURE AEROBIC IDENTIFY (08/21/14) DXA BONE DENSITY AXIAL (01/21/17) EGD BIOPSY SINGLE/MULTIPLE (07/07/17) EMERGENCY DEPT VISIT (03/27/18) HYDRATE IV INFUSION ADD-ON (03/27/18) MICROBE SUSCEPTIBLE RAJAN (03/27/18) MR-STAPH DNA AMP PROBE (11/17/18) MRI JNT OF LWR EXTRE W/O DYE (05/14/15) MRI LUMBAR SPINE W/O DYE (05/22/15) MRI NECK SPINE W/O DYE (06/18/14) ROUTINE VENIPUNCTURE (01/28/16) THER/PROPH/DIAG INJ IV PUSH (03/27/18) THER/PROPH/DIAG IV INF ADDON (01/28/16) THER/PROPH/DIAG IV INF INIT (01/28/16) TX/PRO/DX INJ NEW DRUG ADDON (03/27/18) URINALYSIS AUTO W/SCOPE (03/27/18) URINE BACTERIA CULTURE (03/27/18) URINE CULTURE/COLONY COUNT (03/27/18) (1) S/P total knee arthroplasty SNOMED Code(s): 9128983358058, [id number], [id number] Code(s): Z96.659 - PRESENCE OF UNSPECIFIED ARTIFICIAL KNEE JOINT Priority: High Current Visit: Yes Qualifiers: Laterality: left Qualified Code(s): Z96.652 - Presence of left artificial knee joint Problem List Initiated/Reviewed/Updated: Yes Plan: I/P: Acute: S/P left total knee arthoplasty- post-operative day 0 -DVT prophylaxis and pain management per primary care team -PT/OT -IS/RT -Monitor oxygen saturation -Titrate oxygen as needed -Vital signs stable -Monitor labs -Pain management PRN Osteoarthritis -Pain management per primary team Tobacco Dependence -Current some day smoker -Smoking cessation counseling -Nicotine patch Chronic: GERD Cdiff UTI Renal Calculus Endometriosis Migraines Trigeminal Neuralgia Depression Anxiety Obesity/BMI 30+ Plan: CM for discharge planning Routine AM labs GI/DVT/PE prophylaxis Home medications as indicated Other orders as listed above Routine AM labs She is a full code. PCP is JOSE Escalera. Thank you for allowing us to participate in the care of this patient!
[2018-12-01] MEDS: Nicotine 7 MG/24 Hr Patch TRDERM SCH (19:57)
[2018-12-01] MEDS: Cholecalciferol (Vitamin D3) 5,000 UNIT Tab PO SCH (19:57)
[2018-12-01] MEDS: Famotidine 20 MG Tab PO SCH (20:00)
[2018-12-01] MEDS: Docusate Sodium 100 MG Cap PO SCH (20:00)
[2018-12-02] MEDS: Acetaminophen/oxyCODONE 325-5 MG Tab PO PRN ×2 (00:51→05:08)
[2018-12-02] MEDS: Cyclobenzaprine 10 MG Tab PO PRN (02:41)
[2018-12-02] MEDS: Ketorolac 15 MG/ML SDV IVPUSH PRN ×2 (03:19→08:18)
--- NOTE | 2018-12-02 06:27 | PCM.CONSN ---
- General Info Date of Service: 12/02/18 Admission Dx/Problem (Free Text): Admission Diagnosis/Problem Admission Diagnosis/Problem Osteoarthritis of knee Subjective Update: In to see Dolores. She is lying in bed. She is still on oxygen but her saturations have been in the upper 90's and this will be weaned off. She is still having some significant pain. This was discussed with primary team and medications will be adjusted. Otherwise labs look good. She will be cleared for discharge pending better pain control. Functional Status: Reports: Pain Controlled, Tolerating Diet, Ambulating, Urinating, Incentive Spirometry. Denies: New Symptoms - Review of Systems General: Reports: No Symptoms. Denies: Fever, Weakness, Fatigue, Malaise, Chills HEENT: Reports: No Symptoms. Denies: Headaches, Sore Throat Pulmonary: Reports: No Symptoms. Denies: Shortness of Breath, Pleuritic Chest Pain, Cough, Sputum, Wheezing Cardiovascular: Reports: No Symptoms. Denies: Chest Pain, Palpitations, Dyspnea on Exertion, Edema, Lightheadedness Gastrointestinal: Reports: No Symptoms. Denies: Abdominal Pain, Constipation, Diarrhea, Nausea, Vomiting Genitourinary: Reports: No Symptoms. Denies: Pain Musculoskeletal: Reports: Leg Pain Skin: Reports: No Symptoms Neurological: Reports: No Symptoms. Denies: Confusion, Trouble Speaking, Difficulty Walking, Gait Disturbance Psychiatric: Reports: No Symptoms. Denies: Confusion - Patient Data Vitals - Most Recent: Last Vital Signs Temp 99.6 F 12/02/18 03:43 Pulse 87 12/02/18 03:43 Resp 18 12/02/18 03:43 BP 116/65 12/02/18 03:43 Pulse Ox 96 12/02/18 03:43 Weight - Most Recent: 194 lb I&O - Last 24 Hours: Intake & Output 12/01/18 12/01/18 12/02/18 14:59 22:59 06:59 Intake Total 640 3700 Output Total 1100 1600 600 Balance -460 2100 -600 Med Orders - Current: Current Medications Alprazolam (Xanax) 0.5 mg PO TID PRN PRN Reason: Anxiety Bisacodyl (Dulcolax) 5 mg PO DAILY PRN PRN Reason: Constipation Cholecalciferol (Vitamin D3) 5,000 unit PO DAILY [facility] Last Admin: 12/01/18 19:57 Dose: Not Given Cyclobenzaprine HCl (Flexeril) 10 mg PO TID PRN PRN Reason: Spasms Last Admin: 12/02/18 02:41 Dose: 10 mg Docusate Sodium (Colace) 100 mg PO BID [facility] Last Admin: 12/01/18 20:00 Dose: 100 mg Famotidine (Pepcid) 20 mg PO Q12H [facility] Last Admin: 12/01/18 20:00 Dose: 20 mg Fluoxetine HCl (Prozac) 80 mg PO DAILY [facility] Cefazolin Sodium/Dextrose 2 gm (/ Premix) 50 mls @ 100 mls/hr IV Q8H [facility] Stop: 12/02/18 07:29 Last Admin: 12/01/18 23:14 Dose: 100 mls/hr Ketorolac Tromethamine (Toradol) 15 mg IVPUSH Q6H PRN PRN Reason: Pain Last Admin: 12/02/18 03:19 Dose: 15 mg Magnesium Hydroxide (Milk Of Magnesia) 30 ml PO BID PRN PRN Reason: Constipation Miscellaneous Information (Remove Patch) 1 ea TRDERM DAILY [facility] Morphine Sulfate (Morphine) 2 mg IVPUSH Q2H PRN PRN Reason: Breakthrough Pain Naloxone HCl (Narcan) 0.1 mg IVPUSH Q5M PRN PRN Reason: Oversedation Nicotine (Habitrol) 7 mg TRDERM DAILY [facility] Last Admin: 12/01/18 19:57 Dose: Not Given Ondansetron HCl (Zofran) 4 mg IVPUSH Q6H PRN PRN Reason: Nausea/Vomiting Oxycodone/Acetaminophen (Percocet 325-5 Mg) 1 - 2 tab PO Q4H PRN PRN Reason: Pain Last Admin: 12/02/18 05:08 Dose: 2 tab Estradiol Vaginal (Cream) 0 each VAG Q72H [facility] Rivaroxaban (Xarelto) 10 mg PO DAILY [facility] Senna (Senna) 8.6 mg PO BID PRN PRN Reason: Constipation Discontinued Medications Acetaminophen (Tylenol) 975 mg PO ONETIME [facility] Stop: 12/01/18 14:00 Last Admin: 12/01/18 06:29 Dose: 975 mg Bupivacaine HCl (Marcaine 0.25%) Confirm Administered Dose 30 ml .ROUTE .STK- MED ONE Stop: 12/01/18 06:50 Last Admin: 12/01/18 08:12 Dose: 30 ml Cefazolin Sodium (Ancef) Confirm Administered Dose 2 gm .ROUTE .STK-MED ONE Stop: 12/01/18 06:26 Last Admin: 12/01/18 08:07 Dose: 2 gm Cefazolin Sodium (Ancef) Confirm Administered Dose 2 gm .ROUTE .STK-MED ONE Stop: 12/01/18 06:39 Morphine Sulfate 8 mg/Epinephrine HCl 0.3 mg/Cefuroxime Sodium 750 mg/Ketorolac Tromethamine 30 mg/Sodium Chloride 27.9 ml 0 mg .XX ONETIME ONE Stop: 12/01/18 07:46 Last Admin: 12/01/18 08:11 Dose: 788.3 mg Ephedrine Sulfate (Ephedrine In Ns) Confirm Administered Dose 25 mg .ROUTE .STK- MED ONE Stop: 12/01/18 07:37 Epinephrine HCl (Adrenalin) Confirm Administered Dose 1 mg .ROUTE .STK-MED ONE Stop: 12/01/18 06:49 Fentanyl (Sublimaze) Confirm Administered Dose 100 mcg .ROUTE .STK-MED ONE Stop: 12/01/18 06:23 Fentanyl (Sublimaze) 50 mcg IVPUSH Q5M PRN PRN Reason: Pain Stop: 12/01/18 10:00 Lactated Ringer's (Ringers, Lactated) 1,000 mls @ 125 mls/hr IV ASDIRECTED [facility] Stop: 12/01/18 23:00 Last Admin: 12/01/18 06:40 Dose: 125 mls/hr Lidocaine HCl (Xylocaine-Mpf 1%) Confirm Administered Dose 0 mls @ as directed .ROUTE .STK-MED ONE Stop: 12/01/18 06:22 Lactated Ringer's (Ringers, Lactated) Confirm Administered Dose 1,000 mls @ as directed .ROUTE .STK-MED ONE Stop: 12/01/18 07:17 Lactated Ringer's (Ringers, Lactated) Confirm Administered Dose 1,000 mls @ as directed .ROUTE .STK-MED ONE Stop: 12/01/18 08:29 Influenza Virus Vaccine (Pharmacy To Dose - Influenza Vaccine) 1 each IM ONETIME ONE Stop: 12/01/18 12:03 Influenza Virus Vaccine (Fluzone Quad [id number] Syringe) 60 mcg IM .ONCE ONE Stop: 12/01/18 12:16 Iodine (Iodine 2% Mild Tincture) Confirm Administered Dose 30 ml .ROUTE .STK- MED ONE Stop: 12/01/18 06:39 Last Admin: 12/01/18 08:03 Dose: 18 ml Ketorolac Tromethamine (Toradol) Confirm Administered Dose 30 mg .ROUTE .STK- MED ONE Stop: 12/01/18 07:59 Lidocaine/Sodium Bicarbonate (Buffered Lidocaine 1% In Ns 8.4%) 0.25 ml IDERM ONETIME PRN PRN Reason: Prior to IV Start Stop: 12/01/18 18:00 Last Admin: 12/01/18 06:39 Dose: 0.25 ml Midazolam HCl (Versed 1 Mg/Ml) Confirm Administered Dose 2 mg .ROUTE .STK-MED ONE Stop: 12/01/18 06:23 Ondansetron HCl (Zofran) 4 mg IVPUSH ONETIME PRN PRN Reason: Nausea/Vomiting Stop: 12/01/18 10:00 Ondansetron HCl (Zofran) Confirm Administered Dose 4 mg .ROUTE .STK-MED ONE Stop: 12/01/18 08:13 Oxycodone HCl (Oxycontin) 10 mg PO ONETIME [facility] Stop: 12/01/18 14:00 Last Admin: 12/01/18 06:28 Dose: 10 mg Phenylephrine HCl (Phenylephrine In Ns 100 Mcg/Ml) Confirm Administered Dose 1 mg .ROUTE .STK-MED ONE Stop: 12/01/18 07:51 Pregabalin (Lyrica) 50 mg PO ONETIME [facility] Stop: 12/01/18 14:00 Last Admin: 12/01/18 06:28 Dose: 50 mg Propofol (Diprivan 20 Ml) Confirm Administered Dose 600 mg .ROUTE .STK-MED ONE Stop: 12/01/18 06:23 Ropivacaine (Naropin 0.5%) Confirm Administered Dose 30 ml .ROUTE .STK-MED ONE Stop: 12/01/18 06:49 Sodium Chloride (Saline Flush) 10 ml FLUSH ASDIRECTED PRN PRN Reason: Keep Vein Open Stop: 12/01/18 18:00 Tranexamic Acid (Cyklokapron) Confirm Administered Dose 1,000 mg .ROUTE .STK- MED ONE Stop: 12/01/18 06:39 Last Admin: 12/01/18 08:18 Dose: 1,000 mg Vancomycin HCl (Vancomycin) Confirm Administered Dose 1 gm .ROUTE .STK-MED ONE Stop: 12/01/18 06:39 Last Admin: 12/01/18 08:14 Dose: 1 gm - Exam Quality Assessment: DVT Prophylaxis General: Alert, Oriented, Cooperative, No Acute Distress HEENT: Pupils Equal, Pupils Reactive, EOMI, Mucous Membr. Moist/[place] Neck: Supple, Trachea Midline, No JVD Lungs: Clear to Auscultation, Normal Respiratory Effort Cardiovascular: Regular Rate, Regular Rhythm GI/Abdominal Exam: Normal Bowel Sounds, Soft, Non-Tender, No Distention, No Abnormal Bruit (Female) Exam: Deferred Back Exam: Normal Inspection, Full Range of Motion Extremities: No Pedal Edema, Normal Capillary Refill, Leg Pain, Limited Range of Motion, Other (Bandage in place on left leg. Cooling pack in place. ) Peripheral Pulses: 2+: Radial (L), Radial (R), Dorsalis Pedis (L), Dorsalis Pedis (R) Skin: Warm, Dry, Intact Wound/Incisions: Dressing Dry and Intact, No Drainage Neurological: No New Focal Deficit Psy/Mental Status: Alert, Normal Affect, Normal Mood Consult PN Assessment/Plan POD#: 1 Procedures: Procedures ASSAY OF LIPASE (01/28/16) COMPLETE CBC W/AUTO DIFF WBC (01/28/16) COMPREHEN METABOLIC PANEL (01/28/16) CT ABD & PELVIS W/O CONTRAST (03/27/18) CULTURE AEROBIC IDENTIFY (08/21/14) DXA BONE DENSITY AXIAL (01/21/17) EGD BIOPSY SINGLE/MULTIPLE (07/07/17) EMERGENCY DEPT VISIT (03/27/18) HYDRATE IV INFUSION ADD-ON (03/27/18) MICROBE SUSCEPTIBLE RAJAN (03/27/18) MR-STAPH DNA AMP PROBE (11/17/18) MRI JNT OF LWR EXTRE W/O DYE (05/14/15) MRI LUMBAR SPINE W/O DYE (05/22/15) MRI NECK SPINE W/O DYE (06/18/14) ROUTINE VENIPUNCTURE (01/28/16) THER/PROPH/DIAG INJ IV PUSH (03/27/18) THER/PROPH/DIAG IV INF ADDON (01/28/16) THER/PROPH/DIAG IV INF INIT (01/28/16) TX/PRO/DX INJ NEW DRUG ADDON (03/27/18) URINALYSIS AUTO W/SCOPE (03/27/18) URINE BACTERIA CULTURE (03/27/18) URINE CULTURE/COLONY COUNT (03/27/18) (1) S/P total knee arthroplasty SNOMED Code(s): 6024450322728, 812750202, 6108880818194 Code(s): Z96.659 - PRESENCE OF UNSPECIFIED ARTIFICIAL KNEE JOINT Priority: High Qualifiers: Laterality: left Qualified Code(s): Z96.652 - Presence of left artificial knee joint Problem List Initiated/Reviewed/Updated: Yes Plan: I/P: Acute: S/P left total knee arthoplasty- post-operative day 1 -DVT prophylaxis and pain management per primary care team -PT/OT -IS/RT -Monitor oxygen saturation -Titrate oxygen as needed -Vital signs stable -Monitor labs -Pre-operative Hgb 14.8; Now 11.3 -Pre-operative GFR 71; Now >60 Osteoarthritis -Pain management per primary team Tobacco Dependence -Current some day smoker -Smoking cessation counseling -Nicotine patch Chronic: GERD Cdiff UTI Renal Calculus Endometriosis Migraines Trigeminal Neuralgia Depression Anxiety Obesity/BMI 30+ Plan: CM for discharge planning Routine AM labs GI/DVT/PE prophylaxis Home medications as indicated Other orders as listed above Routine AM labs She is a full code. PCP is JOSE Escalera. Overall from a hospitalist standpoint Dolores is doing well. She has been weaned off oxygen and pain is controlled more after medication changes this AM. She is urinating. She has been up ambulating and working with therapies. Her labs and vital signs remain stable. She is cleared for discharge pending primary team and PT/OT agreement. Thank you for allowing us to participate in the care of this patient!
[2018-12-02] MEDS: ceFAZolin 2 GM in Premix Bag 1 BAG IV SCH (07:17)
--- NOTE | 2018-12-02 07:52 | PCM48HPAN ---
Post Anesthesia Note - EVALUATION WITHIN 48HRS OF ANESTHETIC Vital Signs in Normal Range: Yes Patient Participated in Evaluation: Yes Respiratory Function Stable: Yes Airway Patent: Yes Cardiovascular Function Stable: Yes Hydration Status Stable: Yes Pain Control Satisfactory: No (She complained of pain most of night and today- has been receiving pain med) Nausea and Vomiting Control Satisfactory: Yes Mental Status Recovered: Yes Pulse Rate: 82 Resp Rate: 18 Temperature: 99.0 F Blood Pressure: 116/65
--- NOTE | 2018-12-02 08:05 | PCM.SURGPN ---
- General Info Date of Service: 12/02/18 POD#: 1 Functional Status: Reports: Tolerating Diet, Ambulating, Urinating, Incentive Spirometry, Other (Pt with left knee and left groin pain noted. Pt has had intermittent LLE and hip pain for years.) - Patient Data Vitals - Most Recent: Last Vital Signs Temp 99.0 F 12/02/18 07:52 Pulse 82 12/02/18 07:52 Resp 18 12/02/18 07:52 BP 116/65 12/02/18 07:52 Pulse Ox 96 12/02/18 03:43 Weight - Most Recent: 194 lb I&O - Last 24 Hours: Intake & Output 12/01/18 12/02/18 12/02/18 22:59 06:59 14:59 Intake Total 3700 Output Total 1600 600 Balance 2100 -600 Lab Results Last 24 Hrs: Laboratory Results - last 24 hr 12/02/18 Range/Units 07:26 WBC 9.15 (3.98-10.04) K/mm3 RBC 3.67 L (3.98-5.22) M/mm3 Hgb 11.3 (11.2-15.7) gm/L Hct 35.8 (34.1-44.9) % MCV 97.5 H (79.4-94.8) fl MCH 30.8 (25.6-32.2) pg MCHC 31.6 L (32.2-35.5) g/dl RDW Std Deviation 44.9 (36.4-46.3) fL Plt Count 222 (182-369) K/mm3 MPV 9.7 (9.4-12.3) fl Med Orders - Current: Current Medications Alprazolam (Xanax) 0.5 mg PO TID PRN PRN Reason: Anxiety Bisacodyl (Dulcolax) 5 mg PO DAILY PRN PRN Reason: Constipation Cholecalciferol (Vitamin D3) 5,000 unit PO DAILY [facility] Last Admin: 12/01/18 19:57 Dose: Not Given Cyclobenzaprine HCl (Flexeril) 10 mg PO TID PRN PRN Reason: Spasms Last Admin: 12/02/18 02:41 Dose: 10 mg Docusate Sodium (Colace) 100 mg PO BID [facility] Last Admin: 12/01/18 20:00 Dose: 100 mg Famotidine (Pepcid) 20 mg PO Q12H [facility] Last Admin: 12/01/18 20:00 Dose: 20 mg Fluoxetine HCl (Prozac) 80 mg PO DAILY [facility] Ketorolac Tromethamine (Toradol) 15 mg IVPUSH Q6H PRN PRN Reason: Pain Last Admin: 12/02/18 03:19 Dose: 15 mg Magnesium Hydroxide (Milk Of Magnesia) 30 ml PO BID PRN PRN Reason: Constipation Miscellaneous Information (Remove Patch) 1 ea TRDERM DAILY [facility] Morphine Sulfate (Morphine) 2 mg IVPUSH Q2H PRN PRN Reason: Breakthrough Pain Last Admin: 12/02/18 07:16 Dose: 2 mg Naloxone HCl (Narcan) 0.1 mg IVPUSH Q5M PRN PRN Reason: Oversedation Nicotine (Habitrol) 7 mg TRDERM DAILY [facility] Last Admin: 12/01/18 19:57 Dose: Not Given Ondansetron HCl (Zofran) 4 mg IVPUSH Q6H PRN PRN Reason: Nausea/Vomiting Oxycodone/Acetaminophen (Percocet 325-5 Mg) 1 - 2 tab PO Q4H PRN PRN Reason: Pain Last Admin: 12/02/18 05:08 Dose: 2 tab Estradiol Vaginal (Cream) 0 each VAG Q72H [facility] Rivaroxaban (Xarelto) 10 mg PO DAILY [facility] Senna (Senna) 8.6 mg PO BID PRN PRN Reason: Constipation Tapentadol (Nucynta) 50 mg PO NOW ONE Stop: 12/02/18 08:02 Discontinued Medications Acetaminophen (Tylenol) 975 mg PO ONETIME [facility] Stop: 12/01/18 14:00 Last Admin: 12/01/18 06:29 Dose: 975 mg Bupivacaine HCl (Marcaine 0.25%) Confirm Administered Dose 30 ml .ROUTE .STK- MED ONE Stop: 12/01/18 06:50 Last Admin: 12/01/18 08:12 Dose: 30 ml Cefazolin Sodium (Ancef) Confirm Administered Dose 2 gm .ROUTE .STK-MED ONE Stop: 12/01/18 06:26 Last Admin: 12/01/18 08:07 Dose: 2 gm Cefazolin Sodium (Ancef) Confirm Administered Dose 2 gm .ROUTE .STK-MED ONE Stop: 12/01/18 06:39 Morphine Sulfate 8 mg/Epinephrine HCl 0.3 mg/Cefuroxime Sodium 750 mg/Ketorolac Tromethamine 30 mg/Sodium Chloride 27.9 ml 0 mg .XX ONETIME ONE Stop: 12/01/18 07:46 Last Admin: 12/01/18 08:11 Dose: 788.3 mg Ephedrine Sulfate (Ephedrine In Ns) Confirm Administered Dose 25 mg .ROUTE .STK- MED ONE Stop: 12/01/18 07:37 Epinephrine HCl (Adrenalin) Confirm Administered Dose 1 mg .ROUTE .STK-MED ONE Stop: 12/01/18 06:49 Fentanyl (Sublimaze) Confirm Administered Dose 100 mcg .ROUTE .STK-MED ONE Stop: 12/01/18 06:23 Fentanyl (Sublimaze) 50 mcg IVPUSH Q5M PRN PRN Reason: Pain Stop: 12/01/18 10:00 Lactated Ringer's (Ringers, Lactated) 1,000 mls @ 125 mls/hr IV ASDIRECTED [facility] Stop: 12/01/18 23:00 Last Admin: 12/01/18 06:40 Dose: 125 mls/hr Cefazolin Sodium/Dextrose 2 gm (/ Premix) 50 mls @ 100 mls/hr IV Q8H [facility] Stop: 12/02/18 07:29 Last Admin: 12/02/18 07:17 Dose: 100 mls/hr Lidocaine HCl (Xylocaine-Mpf 1%) Confirm Administered Dose 0 mls @ as directed .ROUTE .STK-MED ONE Stop: 12/01/18 06:22 Lactated Ringer's (Ringers, Lactated) Confirm Administered Dose 1,000 mls @ as directed .ROUTE .STK-MED ONE Stop: 12/01/18 07:17 Lactated Ringer's (Ringers, Lactated) Confirm Administered Dose 1,000 mls @ as directed .ROUTE .STK-MED ONE Stop: 12/01/18 08:29 Influenza Virus Vaccine (Pharmacy To Dose - Influenza Vaccine) 1 each IM ONETIME ONE Stop: 12/01/18 12:03 Influenza Virus Vaccine (Fluzone Quad [id number] Syringe) 60 mcg IM .ONCE ONE Stop: 12/01/18 12:16 Iodine (Iodine 2% Mild Tincture) Confirm Administered Dose 30 ml .ROUTE .STK- MED ONE Stop: 12/01/18 06:39 Last Admin: 12/01/18 08:03 Dose: 18 ml Ketorolac Tromethamine (Toradol) Confirm Administered Dose 30 mg .ROUTE .STK- MED ONE Stop: 12/01/18 07:59 Lidocaine/Sodium Bicarbonate (Buffered Lidocaine 1% In Ns 8.4%) 0.25 ml IDERM ONETIME PRN PRN Reason: Prior to IV Start Stop: 12/01/18 18:00 Last Admin: 12/01/18 06:39 Dose: 0.25 ml Midazolam HCl (Versed 1 Mg/Ml) Confirm Administered Dose 2 mg .ROUTE .STK-MED ONE Stop: 12/01/18 06:23 Ondansetron HCl (Zofran) 4 mg IVPUSH ONETIME PRN PRN Reason: Nausea/Vomiting Stop: 12/01/18 10:00 Ondansetron HCl (Zofran) Confirm Administered Dose 4 mg .ROUTE .STK-MED ONE Stop: 12/01/18 08:13 Oxycodone HCl (Oxycontin) 10 mg PO ONETIME [facility] Stop: 12/01/18 14:00 Last Admin: 12/01/18 06:28 Dose: 10 mg Phenylephrine HCl (Phenylephrine In Ns 100 Mcg/Ml) Confirm Administered Dose 1 mg .ROUTE .STK-MED ONE Stop: 12/01/18 07:51 Pregabalin (Lyrica) 50 mg PO ONETIME [facility] Stop: 12/01/18 14:00 Last Admin: 12/01/18 06:28 Dose: 50 mg Propofol (Diprivan 20 Ml) Confirm Administered Dose 600 mg .ROUTE .STK-MED ONE Stop: 12/01/18 06:23 Ropivacaine (Naropin 0.5%) Confirm Administered Dose 30 ml .ROUTE .STK-MED ONE Stop: 12/01/18 06:49 Sodium Chloride (Saline Flush) 10 ml FLUSH ASDIRECTED PRN PRN Reason: Keep Vein Open Stop: 12/01/18 18:00 Tranexamic Acid (Cyklokapron) Confirm Administered Dose 1,000 mg .ROUTE .STK- MED ONE Stop: 12/01/18 06:39 Last Admin: 12/01/18 08:18 Dose: 1,000 mg Vancomycin HCl (Vancomycin) Confirm Administered Dose 1 gm .ROUTE .STK-MED ONE Stop: 12/01/18 06:39 Last Admin: 12/01/18 08:14 Dose: 1 gm - Exam Wound/Incisions: Dressing Dry and Intact General: Alert, Cooperative, No Acute Distress Lungs: Normal Respiratory Effort Extremities: Other (Mod effusion. Generalized tenderness LLE. Significant calf tenderness. Quad set completed.) - Problem List Review Problem List Initiated/Reviewed/Updated: Yes - My Orders Last 24 Hours: Active Orders 24 hr Category Date Time Status Communication Order [RC] ROUTINE Care 12/01/18 07:27 Active Influenza Vaccine Charge [RC] .DISCHARGE Care 12/01/18 12:02 Active Oxygen Therapy [RC] ASDIRECTED Care 12/01/18 07:27 Active Pulse Oximetry [] ASDIRECTED Care 12/01/18 07:27 Active Vital Signs [] Q15M Care 12/01/18 07:27 Active Regular Diet [DIET] Diet 12/01/18 Lunch Active COMPREHENSIVE METABOLIC PN,CMP [CHEM] AM Lab 12/02/18 07:26 Received ALPRAZolam [Xanax] Med 12/01/18 08:27 Active 0.5 mg PO TID PRN Acetaminophen/oxyCODONE [Percocet 325-5 MG] Med 12/01/18 09:30 Active 1 - 2 tab PO Q4H PRN Bisacodyl [Dulcolax] Med 12/01/18 09:30 Active 5 mg PO DAILY PRN Cholecalciferol (Vitamin D3) [Vitamin D3] Med 12/01/18 09:00 Active 5,000 unit PO DAILY Cyclobenzaprine [Flexeril] Med 12/01/18 09:30 Active 10 mg PO TID PRN Docusate Sodium [Colace] Med 12/01/18 21:00 Active 100 mg PO BID FLUoxetine [PROzac] Med 12/02/18 09:00 Active 80 mg PO DAILY Famotidine [Pepcid] Med 12/01/18 21:00 Active 20 mg PO Q12H Ketorolac [Toradol] Med 12/01/18 09:30 Active 15 mg IVPUSH Q6H PRN Magnesium Hydroxide [Milk of Magnesia] Med 12/01/18 09:30 Active 30 ml PO BID PRN Morphine Med 12/01/18 09:30 Active 2 mg IVPUSH Q2H PRN Naloxone [Narcan] Med 12/01/18 09:30 Active 0.1 mg IVPUSH Q5M PRN Nicotine [Habitrol] Med 12/01/18 18:30 Active 7 mg TRDERM DAILY Ondansetron [Zofran] Med 12/01/18 09:30 Active 4 mg IVPUSH Q6H PRN Patient's Own Medication [Ptom] Med 12/02/18 21:00 Active 0 each VAG Q72H Remove Patch Med 12/02/18 09:00 Active 1 ea TRDERM DAILY Rivaroxaban [Xarelto] Med 12/02/18 09:00 Pending 10 mg PO DAILY Sennosides [Senna] Med 12/01/18 09:30 Active 8.6 mg PO BID PRN Tapentadol [Nucynta] Med 12/02/18 08:01 Once 50 mg PO NOW ONE Medication Orders Alprazolam (Xanax) 0.5 mg PO TID PRN PRN Reason: Anxiety Bisacodyl (Dulcolax) 5 mg PO DAILY PRN PRN Reason: Constipation Cholecalciferol (Vitamin D3) 5,000 unit PO DAILY [facility] Last Admin: 12/01/18 19:57 Dose: Not Given Cyclobenzaprine HCl (Flexeril) 10 mg PO TID PRN PRN Reason: Spasms Last Admin: 12/02/18 02:41 Dose: 10 mg Admin: 12/01/18 19:37 Dose: 10 mg Admin: 12/01/18 11:17 Dose: 10 mg Docusate Sodium (Colace) 100 mg PO BID [facility] Last Admin: 12/01/18 20:00 Dose: 100 mg Famotidine (Pepcid) 20 mg PO Q12H [facility] Last Admin: 12/01/18 20:00 Dose: 20 mg Fluoxetine HCl (Prozac) 80 mg PO DAILY [facility] Ketorolac Tromethamine (Toradol) 15 mg IVPUSH Q6H PRN PRN Reason: Pain Last Admin: 12/02/18 03:19 Dose: 15 mg Admin: 12/01/18 15:11 Dose: 15 mg Magnesium Hydroxide (Milk Of Magnesia) 30 ml PO BID PRN PRN Reason: Constipation Miscellaneous Information (Remove Patch) 1 ea TRDERM DAILY [facility] Morphine Sulfate (Morphine) 2 mg IVPUSH Q2H PRN PRN Reason: Breakthrough Pain Last Admin: 12/02/18 07:16 Dose: 2 mg Naloxone HCl (Narcan) 0.1 mg IVPUSH Q5M PRN PRN Reason: Oversedation Nicotine (Habitrol) 7 mg TRDERM DAILY [facility] Last Admin: 12/01/18 19:57 Dose: Not Given Ondansetron HCl (Zofran) 4 mg IVPUSH Q6H PRN PRN Reason: Nausea/Vomiting Oxycodone/Acetaminophen (Percocet 325-5 Mg) 1 - 2 tab PO Q4H PRN PRN Reason: Pain Last Admin: 12/02/18 05:08 Dose: 2 tab Admin: 12/02/18 00:51 Dose: 2 tab Admin: 12/01/18 19:54 Dose: 2 tab Admin: 12/01/18 15:58 Dose: 2 tab Admin: 12/01/18 11:55 Dose: 1 tab Admin: 12/01/18 11:16 Dose: 1 tab Estradiol Vaginal (Cream) 0 each VAG Q72H [facility] Rivaroxaban (Xarelto) 10 mg PO DAILY [facility] Senna (Senna) 8.6 mg PO BID PRN PRN Reason: Constipation Tapentadol (Nucynta) 50 mg PO NOW ONE Stop: 12/02/18 08:02 - Assessment Assessment (Free Text/Narrative):: POD#1 - left TKA - Plan Plan (Free Text/Narrative):: 1. Will trial Nucynta for pain management. 2. LLE venous doppler due to significant calf tenderness. 3. If pain controlled, will discharge to home today. The pt will have the assistance of her . 4. Xarelto 10mg PO daily. The pt's case was discussed with Dr. Zapata.
[2018-12-02] MEDS: Docusate Sodium 100 MG Cap PO SCH (08:22)
[2018-12-02] MEDS: Famotidine 20 MG Tab PO SCH (08:22)
[2018-12-02] MEDS: Cholecalciferol (Vitamin D3) 5,000 UNIT Tab PO SCH (08:23)
[2018-12-02 08:44] VITALS: BP 121/74
[2018-12-02] MEDS: Nicotine 7 MG/24 Hr Patch TRDERM SCH (08:46)
[2018-12-02] MEDS ORDERED: Rivaroxaban 10 MG Tab PO SCH (09:00)
[2018-12-02] MEDS ORDERED: FLUoxetine 20 MG Cap PO SCH (09:00)
--- NOTE | 2018-12-02 10:41 | US ---
Left lower extremity deep venous ultrasound: Duplex and color flow imaging was obtained of the left common femoral, proximal greater saphenous, superficial femoral, popliteal, posterior tibial and peroneal veins. Right common femoral vein was also evaluated. Findings: Left peroneal vein was not optimally seen for compression but normal phasic flow and augmentation are seen within this vein. Other veins show normal phasic flow, compression and augmentation. Impression: 1. No evidence of deep venous thrombosis within the left lower extremity or within the right common femoral vein. Diagnostic code #1
--- NOTE | 2018-12-07 08:55 | PCM.DCSUM1 ---
Discharge Summary - Hospital Course Brief History: Dolores is a 58 yo female who underwent left TKA with Dr. Zapata on 12-01-2018. The procedure was completed under spinal anesthesia with sedation. The pt tolerated the procedure well and was admitted to the [facility] under Medical-Surgical status. On POD#1, Xarelto 10mg PO daily was initiated for VTE prophylaxis. SDS and TEDs were also used. On POD#1, the pt' s Hgb was 11.3. The pt's pain was managed with Nucynta. The pt participated in PT and OT and was deemed appropriate for discharge to home on POD#1. - Discharge Data Discharge Date: 12/02/18 Discharge Disposition: Home, Self-Care 01 Condition: Good - Patient Summary/Data Operative Procedure(s) Performed: left total knee arthroplasty Consults: Consultations 12/01/18 06:15 OT Evaluation and Treatment [CONS] Routine PT Evaluation and Treatment [CONS] Routine 12/01/18 06:16 Consult to Physician [CONS] Routine - Patient Instructions Diet: Usual Diet as Tolerated Activity: Apply Ice, As Tolerated, Elevate Extremity, Full Weight Bearing Driving: Do Not Drive Showering/Bathing: May Shower Wound/Incision Care: Keep Operative Site/Wound Site Clean and Dry, Do NOT Change Dressing Notify Provider of: Fever, Increased Pain, Swelling and Redness, Drainage, Nausea and/or Vomiting Other/Special Instructions: Please get up and moving around EVERY HOUR while awake. Take a short walk every hour while awake. This helps to prevent blood clots. Have help with mobility as needed. Please take the Xarelto blood thinner medication daily. Please wear the SELENE hose during the day and you may remove them at night. Please schedule for P.T. Complete the P.T. exercises and stretches that were instructed in the Hospital. Please use the pain medication as needed. The medication may cause drowsiness and/or constipation. You could use a stool softener like docusate sodium or Colace 100mg twice daily and/or a laxative like Miralax daily for constipation. Contact your primary care provider for further instructions if you are constipated. Discontinue use of the pain medication as soon as able. Please do not use other medications that may cause drowsiness (other pain medications, anxiety pills, sleeping pills, allergy medications that cause drowsiness) while using the pain medication. Please do not use alcohol while using the pain medication. Use the incentive spirometer often. Please place ice to the surgical site often. Place a towel between your skin and the blue pad. Please elevate the limb to decrease swelling. Keep the dressing in place until follow- up. Please notify the Clinic if the dressing is saturated or rolls. Increase protein intake in your diet as this helps with healing. If you are a diabetic, please closely monitor your blood sugars and notify your primary care provider of your values. Elevated blood sugars increases the risk of infection. Please call [phone] with questions or concerns. - Discharge Plan *PRESCRIPTION DRUG MONITORING PROGRAM REVIEWED*: No *COPY OF PRESCRIPTION DRUG MONITORING REPORT IN PATIENT LINDA: No Prescriptions/Med Rec: Cyclobenzaprine [Flexeril] 10 mg PO TID PRN #40 tablet PRN Reason: Spasms Rivaroxaban [Xarelto] 10 mg PO DAILY #30 tablet Tapentadol HCl [Nucynta] 50 - 100 mg PO Q6H PRN #60 tablet PRN Reason: Pain Home Medications: Home Meds ALPRAZolam [Xanax] 0.5 mg PO TID PRN 01/28/16 [History] FLUoxetine HCl [Fluoxetine HCl] 80 mg PO DAILY 07/06/17 [History] Cholecalciferol (Vitamin D3) [Vitamin D3] 5,000 unit PO DAILY 11/30/18 [History] Estradiol [Estrace 0.01% Vaginal Crm] 1 dose VAG Q72H 11/30/18 [History] Bisacodyl [Dulcolax] 5 mg PO DAILY PRN tablet 12/01/18 [Rx] Cyclobenzaprine [Flexeril] 10 mg PO TID PRN #40 tablet 12/01/18 [Rx] Rivaroxaban [Xarelto] 10 mg PO DAILY #30 tablet 12/01/18 [Rx] HYDROmorphone [Dilaudid] 2 mg PO Q6H PRN #32 tab 12/02/18 [Rx] Tapentadol HCl [Nucynta] 50 - 100 mg PO Q6H PRN #60 tablet 12/02/18 [Rx] Patient Handouts: Total Knee Replacement, Care After, [id number], Total Knee Replacement, [id number], Steps to Quit Smoking Referrals: Melissa Sheriff PA-C [Physician [facility]] - (Follow up on 12/07/2018 at 12 pm with Melissa Sheriff PA-C Follow up on 12/14/2018 at 12 pm with Melissa Sheriff PA-C) - Discharge Summary/Plan Comment DC Time >30 min.: No - Patient Data Vitals - Most Recent: Last Vital Signs Temp 98.0 F 12/02/18 08:00 Pulse 92 12/02/18 08:00 Resp 14 12/02/18 08:00 BP 121/74 12/02/18 08:00 Pulse Ox 94 L 12/02/18 10:00 Weight - Most Recent: 194 lb Med Orders - Current: Current Medications Discontinued Medications Acetaminophen (Tylenol) 975 mg PO ONETIME ODALYS Stop: 12/01/18 14:00 Last Admin: 12/01/18 06:29 Dose: 975 mg Alprazolam (Xanax) 0.5 mg PO TID PRN PRN Reason: Anxiety Bisacodyl (Dulcolax) 5 mg PO DAILY PRN PRN Reason: Constipation Bupivacaine HCl (Marcaine 0.25%) Confirm Administered Dose 30 ml .ROUTE .STK- MED ONE Stop: 12/01/18 06:50 Last Admin: 12/01/18 08:12 Dose: 30 ml Cefazolin Sodium (Ancef) Confirm Administered Dose 2 gm .ROUTE .STK-MED ONE Stop: 12/01/18 06:26 Last Admin: 12/01/18 08:07 Dose: 2 gm Cefazolin Sodium (Ancef) Confirm Administered Dose 2 gm .ROUTE .STK-MED ONE Stop: 12/01/18 06:39 Cholecalciferol (Vitamin D3) 5,000 unit PO DAILY ODALYS Last Admin: 12/02/18 08:23 Dose: 5,000 unit Morphine Sulfate 8 mg/Epinephrine HCl 0.3 mg/Cefuroxime Sodium 750 mg/Ketorolac Tromethamine 30 mg/Sodium Chloride 27.9 ml 0 mg .XX ONETIME ONE Stop: 12/01/18 07:46 Last Admin: 12/01/18 08:11 Dose: 788.3 mg Cyclobenzaprine HCl (Flexeril) 10 mg PO TID PRN PRN Reason: Spasms Last Admin: 12/02/18 02:41 Dose: 10 mg Docusate Sodium (Colace) 100 mg PO BID [facility] Last Admin: 12/02/18 08:22 Dose: 100 mg Ephedrine Sulfate (Ephedrine In Ns) Confirm Administered Dose 25 mg .ROUTE .STK- MED ONE Stop: 12/01/18 07:37 Epinephrine HCl (Adrenalin) Confirm Administered Dose 1 mg .ROUTE .STK-MED ONE Stop: 12/01/18 06:49 Famotidine (Pepcid) 20 mg PO Q12H [facility] Last Admin: 12/02/18 08:22 Dose: 20 mg Fentanyl (Sublimaze) Confirm Administered Dose 100 mcg .ROUTE .STK-MED ONE Stop: 12/01/18 06:23 Fentanyl (Sublimaze) 50 mcg IVPUSH Q5M PRN PRN Reason: Pain Stop: 12/01/18 10:00 Fluoxetine HCl (Prozac) 80 mg PO DAILY [facility] Last Admin: 12/02/18 08:23 Dose: 80 mg Lactated Ringer's (Ringers, Lactated) 1,000 mls @ 125 mls/hr IV ASDIRECTED [facility] Stop: 12/01/18 23:00 Last Admin: 12/01/18 06:40 Dose: 125 mls/hr Cefazolin Sodium/Dextrose 2 gm (/ Premix) 50 mls @ 100 mls/hr IV Q8H [facility] Stop: 12/02/18 07:29 Last Admin: 12/02/18 07:17 Dose: 100 mls/hr Lidocaine HCl (Xylocaine-Mpf 1%) Confirm Administered Dose 0 mls @ as directed .ROUTE .STK-MED ONE Stop: 12/01/18 06:22 Lactated Ringer's (Ringers, Lactated) Confirm Administered Dose 1,000 mls @ as directed .ROUTE .STK-MED ONE Stop: 12/01/18 07:17 Lactated Ringer's (Ringers, Lactated) Confirm Administered Dose 1,000 mls @ as directed .ROUTE .STK-MED ONE Stop: 12/01/18 08:29 Influenza Virus Vaccine (Pharmacy To Dose - Influenza Vaccine) 1 each IM ONETIME ONE Stop: 12/01/18 12:03 Influenza Virus Vaccine (Fluzone Quad [id number] Syringe) 60 mcg IM .ONCE ONE Stop: 12/01/18 12:16 Last Admin: 12/02/18 11:34 Dose: 60 mcg Iodine (Iodine 2% Mild Tincture) Confirm Administered Dose 30 ml .ROUTE .STK- MED ONE Stop: 12/01/18 06:39 Last Admin: 12/01/18 08:03 Dose: 18 ml Ketorolac Tromethamine (Toradol) 15 mg IVPUSH Q6H PRN PRN Reason: Pain Last Admin: 12/02/18 08:18 Dose: 15 mg Ketorolac Tromethamine (Toradol) Confirm Administered Dose 30 mg .ROUTE .STK- MED ONE Stop: 12/01/18 07:59 Lidocaine/Sodium Bicarbonate (Buffered Lidocaine 1% In Ns 8.4%) 0.25 ml IDERM ONETIME PRN PRN Reason: Prior to IV Start Stop: 12/01/18 18:00 Last Admin: 12/01/18 06:39 Dose: 0.25 ml Magnesium Hydroxide (Milk Of Magnesia) 30 ml PO BID PRN PRN Reason: Constipation Midazolam HCl (Versed 1 Mg/Ml) Confirm Administered Dose 2 mg .ROUTE .STK-MED ONE Stop: 12/01/18 06:23 Miscellaneous Information (Remove Patch) 1 ea TRDERM DAILY [facility] Last Admin: 12/02/18 08:47 Dose: Not Given Morphine Sulfate (Morphine) 2 mg IVPUSH Q2H PRN PRN Reason: Breakthrough Pain Last Admin: 12/02/18 07:16 Dose: 2 mg Naloxone HCl (Narcan) 0.1 mg IVPUSH Q5M PRN PRN Reason: Oversedation Nicotine (Habitrol) 7 mg TRDERM DAILY [facility] Last Admin: 12/02/18 08:46 Dose: Not Given Ondansetron HCl (Zofran) 4 mg IVPUSH Q6H PRN PRN Reason: Nausea/Vomiting Ondansetron HCl (Zofran) 4 mg IVPUSH ONETIME PRN PRN Reason: Nausea/Vomiting Stop: 12/01/18 10:00 Ondansetron HCl (Zofran) Confirm Administered Dose 4 mg .ROUTE .STK-MED ONE Stop: 12/01/18 08:13 Oxycodone HCl (Oxycontin) 10 mg PO ONETIME [facility] Stop: 12/01/18 14:00 Last Admin: 12/01/18 06:28 Dose: 10 mg Oxycodone/Acetaminophen (Percocet 325-5 Mg) 1 - 2 tab PO Q4H PRN PRN Reason: Pain Last Admin: 12/02/18 05:08 Dose: 2 tab Estradiol Vaginal (Cream) 0 each VAG Q72H [facility] Phenylephrine HCl (Phenylephrine In Ns 100 Mcg/Ml) Confirm Administered Dose 1 mg .ROUTE .STK-MED ONE Stop: 12/01/18 07:51 Pregabalin (Lyrica) 50 mg PO ONETIME ODALYS Stop: 12/01/18 14:00 Last Admin: 12/01/18 06:28 Dose: 50 mg Propofol (Diprivan 20 Ml) Confirm Administered Dose 600 mg .ROUTE .STK-MED ONE Stop: 12/01/18 06:23 Rivaroxaban (Xarelto) 10 mg PO DAILY [facility] Last Admin: 12/02/18 10:00 Dose: 10 mg Ropivacaine (Naropin 0.5%) Confirm Administered Dose 30 ml .ROUTE .STK-MED ONE Stop: 12/01/18 06:49 Senna (Senna) 8.6 mg PO BID PRN PRN Reason: Constipation Sodium Chloride (Saline Flush) 10 ml FLUSH ASDIRECTED PRN PRN Reason: Keep Vein Open Stop: 12/01/18 18:00 Tapentadol (Nucynta) 50 mg PO NOW ONE Stop: 12/02/18 08:02 Last Admin: 12/02/18 08:22 Dose: 50 mg Tranexamic Acid (Cyklokapron) Confirm Administered Dose 1,000 mg .ROUTE .STK- MED ONE Stop: 12/01/18 06:39 Last Admin: 12/01/18 08:18 Dose: 1,000 mg Vancomycin HCl (Vancomycin) Confirm Administered Dose 1 gm .ROUTE .STK-MED ONE Stop: 12/01/18 06:39 Last Admin: 12/01/18 08:14 Dose: 1 gm
== END 2018-12-02 12:30 | disposition home or self-care (01) | DRG 302 ==
LOC: JD.SDS 06:12 → JD.MS 06:13 → JD.OB 09:40
PROVIDERS: ADMIT Orthopaedic Surgery; ATTEND Orthopaedic Surgery
PROC: 0SRD0JA Replacement of Left Knee Joint with Synthetic Substitute, Uncemented, Open Approach (ICD-10-PCS; principal; 2018-12-01)
PROC: 3E0T3BZ Introduction of Anesthetic Agent into Peripheral Nerves and Plexi, Percutaneous Approach (ICD-10-PCS; 2018-12-01)
DX: M17.12 Unilateral primary osteoarthritis, left knee (principal); G89.18 Other acute postprocedural pain; K21.9 Gastro-esophageal reflux disease without esophagitis; G43.909 Migraine, unspecified, not intractable, without status migrainosus; M25.762 Osteophyte, left knee; G50.0 Trigeminal neuralgia; F32.9 Major depressive disorder, single episode, unspecified; F41.9 Anxiety disorder, unspecified; E66.9 Obesity, unspecified; E78.00 Pure hypercholesterolemia, unspecified; F17.210 Nicotine dependence, cigarettes, uncomplicated; Z90.49 Acquired absence of other specified parts of digestive tract; Z86.19 Personal history of other infectious and parasitic diseases; Z87.440 Personal history of urinary (tract) infections; Z88.1 Allergy status to other antibiotic agents; Z90.710 Acquired absence of both cervix and uterus; Z88.2 Allergy status to sulfonamides; Z88.8 Allergy status to other drugs, medicaments and biological substances; Z79.899 Other long term (current) drug therapy; Z87.442 Personal history of urinary calculi; Z68.30 Body mass index [BMI] 30.0-30.9, adult
CPT/HCPCS: 01402; 36415; 64450; 73560-26-LT; 73560-LT; 80053; 85027; 90686; 93971-26-LT; 93971-LT; 97110-GP; 97116-GP; 97161-GP; 97165-GO; 97535-GO; A9270-GY; C1776; J0171; J0690; J0697; J1885; J2001; J2250; J2270; J2370; J2405; J2704; J2795; J3010; J3370; J3490; J7050; J7120

== ENCOUNTER 2018-12-02 20:12 | Emergency (ER) | payer BC ==
[2018-12-02 20:26] VITALS: BP 158/81
[2018-12-02] MEDS ORDERED: HYDROmorphone 1 MG/ML Syringe IVPUSH ONE (20:40)
[2018-12-02] MEDS ORDERED: Sodium Chloride 0.9% 10 ML Syringe FLUSH PRN (20:41)
[2018-12-02] MEDS ORDERED: Ondansetron 4 MG/2 ML SDV IVPUSH ONE (20:41)
--- NOTE | 2018-12-02 20:56 | EDM.PDOC ---
ED HPI GENERAL MEDICAL PROBLEM - General Chief Complaint: Lower Extremity Injury/Pain Stated Complaint: LEFT KNEE PAIN FROM SURGERY Time Seen by Provider: 12/02/18 20:23 Source of Information: Reports: Patient, RN Notes Reviewed History Limitations: Reports: No Limitations - History of Present Illness INITIAL COMMENTS - FREE TEXT/NARRATIVE: Patient is a 58-year-old female who presents to the ED today for evaluation of left knee pain. She states that she had a total left knee replacement done yesterday at this facility by Dr. Zapata. She was resultantly discharged home this afternoon at 12:30 PM. She was given Nucynta 50mg, and Flexeril for pain relief. She states that she has tried these medications but they have not been providing relief. She states that her pain was never really under control when they send her home today. Upon arrival to ED she is having pain rated at a 10 out of 10 with nausea present. There is swelling noted to her left leg. She does have a surgical bandage in place with SELENE hose over this bandage. He states that she has not eaten much today either, just some dry crackers. She states she has not vomited. Her knee feels warm to the touch as well. She also states that she gets feelings of being hot and cold and hasn't taken her temperature at home. Left Knee Pain Score (Numeric/FACES): 10 - Related Data Allergies Allergy/AdvReac Type Severity Reaction Status Date / Time Sulfa (Sulfonamide Allergy Rash Verified 12/02/18 20:27 Antibiotics) sulfamethoxazole Allergy Rash Verified 12/02/18 20:27 [From Bactrim] trimethoprim [From Bactrim] Allergy Rash Verified 12/02/18 20:27 bupropion AdvReac Headache Verified 12/02/18 20:27 meloxicam AdvReac Nausea Verified 12/02/18 20:27 nitrofurantoin AdvReac Nausea Verified 12/02/18 20:27 [From Macrobid] Home Meds: Home Meds ALPRAZolam [Xanax] 0.5 mg PO TID PRN 01/28/16 [History] FLUoxetine HCl [Fluoxetine HCl] 80 mg PO DAILY 07/06/17 [History] Cholecalciferol (Vitamin D3) [Vitamin D3] 5,000 unit PO DAILY 11/30/18 [History] Estradiol [Estrace 0.01% Vaginal Crm] 1 dose VAG Q72H 11/30/18 [History] Bisacodyl [Dulcolax] 5 mg PO DAILY PRN tablet 12/01/18 [Rx] Cyclobenzaprine [Flexeril] 10 mg PO TID PRN #40 tablet 12/01/18 [Rx] Rivaroxaban [Xarelto] 10 mg PO DAILY #30 tablet 12/01/18 [Rx] HYDROmorphone [Dilaudid] 2 mg PO Q6H PRN #32 tab 12/02/18 [Rx] Tapentadol HCl [Nucynta] 50 - 100 mg PO Q6H PRN #60 tablet 12/02/18 [Rx] Past Medical History HEENT History: Reports: Other (See Below) Other HEENT History: upper plate, oral muscosal lesion Cardiovascular History: Reports: High Cholesterol Respiratory History: Reports: None Gastrointestinal History: Reports: GERD, Other (See Below) Other Gastrointestinal History: c diff Genitourinary History: Reports: Renal Calculus, UTI, Recurrent Other Genitourinary History: kidney stones, pylenonephritis, hematuria, hydronephrosis VP PUBLIC RELATIONS History: Reports: Endometriosis, Other VP PUBLIC RELATIONS History: x 2 Musculoskeletal History: Reports: Arthritis, Osteoarthritis Neurological History: Reports: Migraines, Other (See Below) Other Neuro History: trigeminal neuralgia=surgery, see HEENT Psychiatric History: Reports: Anxiety, Depression Endocrine/Metabolic History: Reports: Obesity/BMI 30+ Hematologic History: Reports: None Immunologic History: Reports: None Oncologic (Cancer) History: Reports: None Dermatologic History: Reports: None - Infectious Disease History Infectious Disease History: Reports: C-Difficile Other Infectious Disease History: 2016 - Past Surgical History Head Surgeries/Procedures: Reports: Craniotomy HEENT Surgical History: Reports: LASIK, Oral Surgery, Other (See Below) Other HEENT Surgeries/Procedures: surgical "buffer" placed between trigeminal nerve and proximal blood vessels that were pressing into it. Cardiovascular Surgical History: Reports: None Respiratory Surgical History: Reports: None GI Surgical History: Reports: Appendectomy, Cholecystectomy Female Surgical History: Reports: Section, Hysterectomy, Oophorectomy Endocrine Surgical History: Reports: None Neurological Surgical History: Reports: Other (See Below) Other Neurological Surgeries/Procedures: craniectomy aprox 20 years ago Musculoskeletal Surgical History: Reports: Shoulder Surgery, Other (See Below) Oncologic Surgical History: Reports: None Dermatological Surgical History: Reports: None Social & Family History - Family History Family Medical History: Noncontributory - Caffeine Use Caffeine Use: Reports: Soda - Living Situation & Occupation Living situation: Reports: , with Spouse Occupation: Retired Review of Systems - Review of Systems Review Of Systems: ROS reveals no pertinent complaints other than HPI. Constitutional: Reports: Diaphoresis Eyes: Reports: No Symptoms Ears: Reports: No Symptoms Nose: Reports: No Symptoms Mouth/Throat: Reports: No Symptoms Respiratory: Reports: No Symptoms Cardiovascular: Reports: No Symptoms GI/Abdominal: Reports: No Symptoms Genitourinary: Reports: No Symptoms Musculoskeletal: Reports: Joint Pain (left knee), Joint Swelling (left knee) Skin: Reports: Wound (surgical incision over left knee, bandage in place, no drainage noted). Denies: Mottled, Pallor Neurological: Denies: Numbness, Tingling Psychiatric: Reports: No Symptoms ED EXAM, GENERAL - Physical Exam Exam: See Below Exam Limited By: No Limitations General Appearance: Alert, WD/WN, Mild Distress (pt is diaphoretic and appears to be in a fair deal of pain.) Eye Exam: Bilateral Eye: EOMI, Normal Inspection, PERRL Ears: Normal External Exam Nose: Normal Inspection Throat/Mouth: Normal Inspection, Normal Oropharynx, No Airway Compromise Head: Atraumatic, Normocephalic Neck: Normal Inspection Respiratory/Chest: No Respiratory Distress, Lungs Clear, Normal Breath Sounds, No Accessory Muscle Use, Chest Non-Tender Cardiovascular: Normal Peripheral Pulses, Regular Rate, Rhythm, No Murmur GI/Abdominal: Normal Bowel Sounds, Soft, Non-Tender, No Distention Extremities: Joint Swelling (recent surgery to left knee, the patient's knee is more visibly swollen than her right, it is warm to the touch, but does not appear to be actively draining), Limited Range of Motion (d/t pain and incision of left knee), Increased Warmth (left knee) Neurological: Alert, Oriented, Normal Cognition, No Motor/Sensory Deficits Psychiatric: Normal Affect, Normal Mood Skin Exam: Warm, Dry, Intact, Normal Color Course - Vital Signs Last Recorded V/S: Last Vital Signs Temp 100.2 F 12/02/18 20:21 Pulse 106 H 12/02/18 20:21 Resp 18 12/02/18 20:21 BP 158/81 H 12/02/18 20:21 Pulse Ox 93 L 12/02/18 20:21 - Orders/Labs/Meds Orders: Active Orders 24 hr Category Date Time Status Peripheral IV Care [RC] . DIRECTED Care 12/02/18 20:41 Active Sodium Chloride 0.9% [Saline Flush] Med 12/02/18 20:41 Active 10 ml FLUSH ASDIRECTED PRN Peripheral IV Insertion Adult [OM.PC] Routine Oth 12/02/18 20:41 Ordered Medication Orders Sodium Chloride (Saline Flush) 10 ml FLUSH ASDIRECTED PRN PRN Reason: Keep Vein Open Last Admin: 12/02/18 21:00 Dose: 10 ml Meds: Medications Generic Name Dose Route Start Last Admin Trade Name Freq PRN Reason Stop Dose Admin Sodium Chloride 10 ml 12/02/18 20:41 12/02/18 21:00 Saline Flush FLUSH 10 ml ASDIRECTED PRN Administration Keep Vein Open Discontinued Medications Generic Name Dose Route Start Last Admin Trade Name Freq PRN Reason Stop Dose Admin Hydromorphone HCl 1 mg 12/02/18 20:40 12/02/18 20:56 Dilaudid IVPUSH 12/02/18 20:41 1 mg ONETIME ONE Administration Hydromorphone HCl 2 mg 12/02/18 22:15 Dilaudid PO 12/02/18 22:16 Q3H ONE Ondansetron HCl 4 mg 12/02/18 20:41 12/02/18 20:55 Zofran IVPUSH 12/02/18 20:42 4 mg ONETIME ONE Administration - Re-Assessments/Exams Free Text/Narrative Re-Assessment/Exam: 12/02/18 21:04 Pt presents to the ED for the evaluation left knee pain after surgery. I did order 4 mg IV Zofran and 1 mg IV Dilaudid to see if this doesn't provide her some relief right now. She looks to be in a fair amount of pain on exam. I'm wondering if the medications she was prescribed is going to be sufficient enough for her. If the Dilaudid works well for her eye might be tempted to send her home with a couple tabs of hydrocodone or Percocet in lieu of the Nucynta medication. I was unaware of what Nucynta was and it is a medicine like tramadol, a non-opioid narcotic. 12/02/18 21:53 Patient was reassessed at bedside she states that her nausea has gotten better. However, her pain has not gotten a whole lot better. She states that the Dilaudid helped dull the pain a little bit but she states that she still has a feeling of fire in her knee. She has been using the cryotherapy machine that was provided to her for swelling at home. 12/02/18 22:16 Dr. Zapata was consulted, and he states to try 2mg oral Dilaudid to see if this doesn't help the patient's pain level. 12/02/18 22:56 Patient was given oral Dilaudid. She states that her pain is now at a tolerable level and feels that she is ready to go home. I will provide her with a prescription for this and tolerated taking over the weekend with re- evaluation possibly Wednesday. Departure - Departure Time of Disposition: 23:05 Disposition: Home, Self-Care 01 Condition: Fair Clinical Impression: Left knee pain Qualifiers: Chronicity: acute Qualified Code(s): M25.562 - Pain in left knee - Discharge Information *PRESCRIPTION DRUG MONITORING PROGRAM REVIEWED*: No *COPY OF PRESCRIPTION DRUG MONITORING REPORT IN PATIENT LINDA: No Instructions: Pain Medicine Instructions, [id number] Referrals: Candida Jimenez NP [Primary Care Provider] - Forms: ED Department Discharge Additional Instructions: You have been evaluated in the ED for your left knee pain. You have been given 2 tabs of oral Dilaudid for overnight pain relief. You have been provided with a prescription for oral Dilaudid for further pain relief over the weekend. Sent to [place] [facility] in [facility]. He has only been provided enough for over the weekend he will need to seek reevaluation by Dr. Zapata on Wednesday for a further prescription. Please to your exercises as you were directed to do for your knee replacement. Please return to the ED if her symptoms change or worsen. - My Orders Last 24 Hours: My Active Orders 12/02/18 20:41 Peripheral IV Care [RC] . DIRECTED Sodium Chloride 0.9% [Saline Flush] 10 ml FLUSH ASDIRECTED PRN Peripheral IV Insertion Adult [OM.PC] Routine - Assessment/Plan Last 24 Hours: My Active Orders 12/02/18 20:41 Peripheral IV Care [RC] . DIRECTED Sodium Chloride 0.9% [Saline Flush] 10 ml FLUSH ASDIRECTED PRN Peripheral IV Insertion Adult [OM.PC] Routine
[2018-12-02] MEDS ORDERED: HYDROmorphone 2 MG Tab PO ONE (22:15)
[2018-12-02] MEDS ORDERED: HYDROmorphone 2 MG Tab PO PRN (23:00)
== END 2018-12-02 23:42 | disposition home or self-care (01) ==
LOC: JD.ED 20:12
DX: M25.562 Pain in left knee (principal); E78.00 Pure hypercholesterolemia, unspecified; K21.9 Gastro-esophageal reflux disease without esophagitis; F41.9 Anxiety disorder, unspecified; F32.9 Major depressive disorder, single episode, unspecified; Z88.2 Allergy status to sulfonamides; Z88.1 Allergy status to other antibiotic agents; Z88.8 Allergy status to other drugs, medicaments and biological substances; Z79.899 Other long term (current) drug therapy
CPT/HCPCS: 96374; 96375; 99283; A9270; J1170; J2405; 99284

== ENCOUNTER 2021-01-20 07:07 | Day surgery (SDC) | payer BC ==
--- NOTE | 2021-01-16 14:17 | PCM.PREANE ---
Preanesthetic Assessment - Procedure Proposed Procedure: Left Total Hip Arthroplasty - Anesthesia/Transfusion/Family Hx Anesthesia History: Prior Anesthesia Without Reaction Family History of Anesthesia Reaction: No Transfusion History: No Prior Transfusion(s) Intubation History: Unknown - Review of Systems General: No Symptoms Pulmonary: No Symptoms (Smoker: 1/4 ppd times 29 years. ETOH:Rarely) Cardiovascular: No Symptoms Gastrointestinal: No Symptoms (GERD-on occasion) Neurological: No Symptoms (Trigeminal neuralgia: surgery/cerebral neurostimulator ? (25 yrs ago)), Headache (migraines) Other: Reports: None, Neck Pain (old injury), Depression, Anxiety - Physical Assessment NPO Status Date: 01/19/21 NPO Status Time: 20:00 Vital Signs: HR:67 Sat:96% Temp:97.7 Resp:16 B/P:118/72 Height: 1.68 m Weight: 85 kg ASA Class: 2 Mental Status: Alert & Oriented x3 Airway Class: Mallampati = 2 Dentition: Reports: Normal Dentition (upper plate solid), Caries Thyro-Mental Finger Breadths: 3 Mouth Opening Finger Breadths: 3 ROM/Head Extension: Full Lungs: Clear to Auscultation, Normal Respiratory Effort Cardiovascular: Regular Rate, Regular Rhythm, No Murmurs - Lab Values: All labs reviewed and noted and within acceptable ranges to proceed with scheduled procedure. - Imaging/EKG Impressions: EKG: SR rate=57 CXR: normal - Allergies Allergies/Adverse Reactions: Allergies Allergy/AdvReac Type Severity Reaction Status Date / Time piperacillin [From Zosyn] Allergy Rash Verified 01/17/21 11:06 red dye Allergy Rash Verified 01/17/21 11:06 Sulfa (Sulfonamide Allergy Rash Verified 01/17/21 11:06 Antibiotics) sulfamethoxazole Allergy Rash Verified 01/17/21 11:06 [From Bactrim] tazobactam [From Zosyn] Allergy Rash Verified 01/17/21 11:06 trimethoprim [From Bactrim] Allergy Rash Verified 01/17/21 11:06 bupropion AdvReac Headache Verified 01/17/21 11:06 meloxicam AdvReac Nausea Verified 01/17/21 11:06 nitrofurantoin AdvReac Nausea Verified 01/17/21 11:06 [From Macrobid] - Anesthesia Plan Pre-Op Medication Ordered: Other (Pre-operative oral medications (lyrica, tylenol, oxycodone: @ 0730 )) - Acknowledgements Anesthesia Type Planned: Spinal Pt an Appropriate Candidate for the Planned Anesthesia: Yes Alternatives and Risks of Anesthesia Discussed w Pt/Guardian: Yes Pt/Guardian Understands and Agrees with Anesthesia Plan: Yes PreAnesthesia Questionnaire HEENT History: Reports: Other (See Below) Other HEENT History: upper plate, oral muscosal lesion Cardiovascular History: Reports: High Cholesterol Respiratory History: Reports: None Gastrointestinal History: Reports: GERD, Other (See Below) Other Gastrointestinal History: c diff Genitourinary History: Reports: Renal Calculus, UTI, Recurrent Other Genitourinary History: kidney stones, pylenonephritis, hematuria, hydronephrosis PT SITTER History: Reports: Endometriosis, Other OB/BYN History: x 2 Musculoskeletal History: Reports: Arthritis, Osteoarthritis Neurological History: Reports: Migraines, Other (See Below) Other Neuro History: trigeminal neuralgia=surgery, see HEENT Psychiatric History: Reports: Anxiety, Depression Endocrine/Metabolic History: Reports: Obesity/BMI 30+ Hematologic History: Reports: None Immunologic History: Reports: None Oncologic (Cancer) History: Reports: None Dermatologic History: Reports: None - Infectious Disease History Infectious Disease History: Reports: C-Difficile Other Infectious Disease History: 2016 - Past Surgical History Head Surgeries/Procedures: Reports: Craniotomy HEENT Surgical History: Reports: LASIK, Oral Surgery, Other (See Below) Other HEENT Surgeries/Procedures: surgical "buffer" placed between trigeminal nerve and proximal blood vessels that were pressing into it. Cardiovascular Surgical History: Reports: None Respiratory Surgical History: Reports: None GI Surgical History: Reports: Appendectomy, Cholecystectomy Female Surgical History: Reports: Section, Hysterectomy, Oophorectomy Endocrine Surgical History: Reports: None Neurological Surgical History: Reports: Other (See Below) Other Neurological Surgeries/Procedures: craniectomy aprox 20 years ago Musculoskeletal Surgical History: Reports: Shoulder Surgery, Other (See Below) Oncologic Surgical History: Reports: None Dermatological Surgical History: Reports: None - HOME MEDS Home Medications: Home Meds ALPRAZolam [Xanax] 0.5 mg PO TID PRN 01/28/16 [History] FLUoxetine HCl [Fluoxetine HCl] 80 mg PO DAILY 07/06/17 [History] Cholecalciferol (Vitamin D3) [Vitamin D3] 5,000 unit PO DAILY 11/30/18 [History] Calcium Carbonate [Calcium] 600 mg PO BID 01/17/21 [History] Cranberry Fruit Extract [Cranberry] 500 mg PO BID 01/17/21 [History] Lactobacillus Acidophilus [Probiotic] 1 cap PO DAILY 01/17/21 [History] Multivitamin 1 tab PO DAILY 01/17/21 [History] Triamcinolone Acetonide [Kenalog 0.1% Crm] 1 dose TOP BID PRN 01/17/21 [History] Cyclobenzaprine [Flexeril] 10 mg PO BID PRN #20 tab 01/20/21 [Rx] Rivaroxaban [Xarelto] 10 mg PO DAILY #35 tab 01/20/21 [Rx] oxyCODONE 5 - 10 mg PO Q4H PRN #40 tab 01/20/21 [Rx] - CURRENT (IN HOUSE) MEDS Current Meds: Current Medications Morphine Sulfate 8 mg/Epinephrine HCl 0.3 mg/Cefuroxime Sodium 750 mg/Ketorolac Tromethamine 30 mg/Sodium Chloride 7.9 ml 0 mg .XX ASDIRECTED PRN PRN Reason: Pain Stop: 01/20/21 13:00 Lactated Ringer's (Ringers, Lactated) 1,000 mls @ 125 mls/hr IV ASDIRECTED ODALYS Stop: 01/20/21 23:00 Lidocaine/Sodium Bicarbonate (Lidocaine 1%/Sod Bicarbonate In Ns 8.4% 1 Ml Syringe) 0.25 ml IDERM ONETIME PRN PRN Reason: Prior to IV Start Stop: 01/20/21 18:00 Sodium Chloride (Sodium Chloride 0.9% 10 Ml Syringe) 10 ml FLUSH ASDIRECTED PRN PRN Reason: Keep Vein Open Stop: 01/20/21 18:00
[~2021-01-20 07:07] MED LIST changes: +Lidocaine 1%/Sod Bicarbonate in NS 8.4% 1 ML Syringe IDERM PRN; +Morphine 8 MG, EPINEPHrine 0.3 MG, Cefuroxime 750 MG, Ketorolac 30 MG, Sodium Chloride ... PRN; +Sodium Chloride 0.9% 10 ML Syringe FLUSH PRN
[2021-01-20] MEDS ORDERED: Lactated Ringers 2,000 ML ONE (07:11)
[2021-01-20] MEDS ORDERED: Lidocaine 1% 4 ML ONE (07:11)
[2021-01-20] MEDS ORDERED: Ketorolac 30 MG/ML SDV ONE (07:11)
[2021-01-20] MEDS ORDERED: Ondansetron 4 MG/2 ML SDV ONE (07:11)
[2021-01-20] MEDS ORDERED: Midazolam 1 MG/ML 2 ML SDV ONE ×2 (07:12→09:50)
[2021-01-20] MEDS ORDERED: fentaNYL 100 MCG/2 ML SDV ONE (07:12)
[2021-01-20] MEDS ORDERED: Ketamine 500 mg/10 ML MDV ONE (07:13)
[2021-01-20] MEDS ORDERED: Propofol 200 MG/20 ML SDV ONE ×2 (07:14→09:06)
[2021-01-20] MEDS ORDERED: ceFAZolin 1 GM Vial ONE (07:16)
[2021-01-20] MEDS: Lactated Ringers 1,000 ML IV SCH ×2 (07:30→11:32)
[2021-01-20] MEDS ORDERED: Bupivacaine 0.25% 10 ML SDV ONE (07:36)
[2021-01-20] MEDS ORDERED: Vancomycin 1 GM SDV ONE (07:36)
[2021-01-20] MEDS ORDERED: ePHEDrine 50 MG/ML SDV ONE (08:42)
[2021-01-20] MEDS ORDERED: diphenhydrAMINE 50 MG/ML SDV IVPUSH PRN (08:53)
[2021-01-20] MEDS ORDERED: fentaNYL 100 MCG/2 ML SDV IVPUSH PRN (08:53)
[2021-01-20] MEDS ORDERED: Albuterol 0.083% 2.5 MG/3 ML Neb Soln NEB PRN (08:53)
[2021-01-20] MEDS ORDERED: HYDROmorphone 0.5 MG/0.5 ML Syringe IVPUSH PRN (08:53)
[2021-01-20] MEDS ORDERED: Ondansetron 4 MG/2 ML SDV IVPUSH PRN ×2 (08:53→13:08)
[2021-01-20] MEDS ORDERED: ePHEDrine 50 MG/ML SDV IVPUSH PRN (08:53)
[2021-01-20] MEDS ORDERED: Phenylephrine 1% 10 MG/ML SDV IVPUSH PRN (08:59)
[2021-01-20] MEDS ORDERED: HYDROmorphone 1 MG/ML Syringe ONE ×2 (09:53→09:55)
--- NOTE | 2021-01-20 10:21 | PCM.POSTAN ---
POST ANESTHESIA ASSESSMENT - MENTAL STATUS Mental Status: Alert - VITAL SIGNS Vital Signs: Last Vital Signs Temp 97.7 01/20/21 1010 Pulse 72 01/20/21 1010 Resp 7 01/20/21 1010 BP 85/59 01/20/21 1010 Pulse Ox 100% 01/20/21 1010 - RESPIRATORY Respiratory Status: Respiratory Rate WNL, Airway Patent, O2 Saturation Stable, Supplemental Oxygen - CARDIOVASCULAR CV Status: Pulse Rate WNL, Blood Pressure Stable - GASTROINTESTINAL GI Status: No Symptoms - POST OP HYDRATION Hydration Status: Adequate & Stable
--- NOTE | 2021-01-20 11:17 | CR ---
Pelvis and left hip: AP view of the pelvis was obtained as well as crosstable lateral view of the left hip. Comparison: Prior left hip CT study of 01/07/21. Left hip prosthesis is seen. Components are aligned. Underlying bony structures are intact. Nothing acute is otherwise seen. Impression: 1. Recently placed left hip prosthesis. 2. Nothing acute is otherwise seen. Diagnostic code #2
--- NOTE | 2021-01-20 12:10 | PCM48HPAN ---
Post Anesthesia Note - EVALUATION WITHIN 48HRS OF ANESTHETIC Vital Signs in Normal Range: Yes Patient Participated in Evaluation: Yes Respiratory Function Stable: Yes Airway Patent: Yes Cardiovascular Function Stable: Yes Hydration Status Stable: Yes Pain Control Satisfactory: Yes Nausea and Vomiting Control Satisfactory: Yes Mental Status Recovered: Yes Vital Signs: Last Vital Signs Temp 36.5 C 01/20/21 11:20 Pulse 69 01/20/21 11:20 Resp 12 01/20/21 11:20 BP 95/51 L 01/20/21 11:20 Pulse Ox 95 01/20/21 11:20
--- NOTE | 2021-01-20 13:43 | PCM.OPNOTE ---
- General Post-Op/Procedure Note Date of Surgery/Procedure: 01/20/21 Operative Procedure(s): left total hip arthroplasty Pre Op Diagnosis: left hip osteoarthrosis Post-Op Diagnosis: Same Anesthesia Technique: Local, MAC, Spinal Primary Surgeon: Jorge L Zapata Anesthesia Provider: Qian Redding Peer Support Specialist: Melissa Sheriff Peer Support Specialist: Jena Phoenix EBL in mLs: 400 Complications: None Condition: Good Free Text/Narrative:: Intake & Output 01/19/21 01/20/21 01/20/21 22:59 06:59 14:59 Intake Total 600 Balance 600 54 cup 5 stem 36-2.5
[2021-01-20] MEDS ORDERED: oxyCODONE 5 MG Tab PO PRN (13:53)
[2021-01-20] MEDS ORDERED: Cyclobenzaprine 10 MG Tab PO ONE (13:53)
[2021-01-20 14:46] VITALS: BP 115/60; PULSE 74
--- NOTE | 2021-01-27 08:16 | OR ---
DATE OF OPERATION: 01/20/2021 SURGEON: Jorge L Zapata MD OPERATION PERFORMED: Left total hip arthroplasty with Janki David robotics. PREOPERATIVE DIAGNOSIS: Left hip osteoarthrosis. POSTOPERATIVE DIAGNOSIS: Left hip osteoarthrosis. ANESTHESIA: Local MAC with spinal. ANESTHESIA PROVIDER: Qian Redding CRNA PILOT BOAT DECKHAND: Melissa Sheriff PA-C; and Jena Phoenix LPN. ESTIMATED BLOOD LOSS: 400 mL. COMPLICATIONS: None. CONDITION: Stable. IMPLANTS: 1. Janki size 54 mm solid Tritanium II acetabular cup. 2. Sycamore size 5 Accolade II stem. 3. Sycamore size 36 -2.5 Biolox femoral head. DESCRIPTION OF PROCEDURE: The patient was identified in the preoperative holding area. Proper site was marked and identified by the surgeon. The patient was taken back to the operative theater, where after adequate anesthesia, the patient was placed in a right lateral decubitus position. Axillary roll was placed. All bony prominences were well padded. Pegs were then placed and well padded. The patient's gluteal fold was parallel to the floor. The left hip was then sterilely prepped and draped in the usual sterile fashion. OR time-out was performed. The patient received 2 g IV Ancef. At this time, three 4.0 pins were placed in the iliac crest 3 fingerbreadths posterior to the ASIS. The Janki David robotic array was then placed making sure it was down on bone. At this time, standard posterior incision was made centered over the greater trochanter. This was taken down to the IT band and gluteal fascia, which was then incised along the incisional length. Charnley retractor was then placed. A checkpoint was placed in the greater trochanter. Takedown of the short external rotators and capsule was done from the level of the piriformis down to the lesser trochanter. Hip was then dislocated. Neck cut was completed and found to be adequate. Attention was turned to the acetabulum. Anterior and posterior acetabular retractors were placed. Circumferential removal of the labrum as well as pulvinar was done at this time. The Sycamore David robotic plan was then undertaken obtaining 15 points intra-articularly in the cartilaginous surface as well as in the anterior and posterior horn of the acetabulum. Next, 15 points were obtained extra-articularly around the acetabular rim. [employer] robotic plan was then undertaken for 20 degrees of anteversion and 45 degrees of abduction. Sycamore David robotic arm was brought in with a size 54 reamer. The 54 reamer was then placed and the ream was completed and found to be adequate. At this time, the size 54 mm Tritanium II acetabular cup was placed on the Janki David robotic arm. It was then locked in at 45 and 20 and then impacted into place. It was found to be in adequate position. At this time, Sycamore David robotic arm was removed and the 36 mm flat liner was impacted into place. Attention was turned to the femur. Box chisel was used out laterally. Starter awl was placed down the canal. Starting with the 0 broach, I was able to broach up to a size 5 which was found to be rotationally and vertically stable. The patient then had a trial 36 +0 trialed. It was found to be a minor amount long, so we trialed a 36 -2.5. It was found to have adequate confucianist of leg lengths and was stable throughout range of motion. Trial implants were then removed. Size 5 Accolade II stem with a 36 -2.5 Biolox femoral head were impacted into the femur. Hip was then reduced. #5 Ethibond suture was used for closure of the short external rotators and capsule. 400 mL of IrriSept irrigation were irrigated through the hip along with 1 L of pulse lavage irrigation with Ancef. Topical tranexamic acid and vancomycin powder and a periarticular injection were completed. A #2 barbed suture was used for closure of the IT band and gluteal fascia, 2-0 Vicryl was used subcutaneously, and Prineo was used for closure of the skin. The patient had a sterile soft dressing applied and sent to PACU in stable condition. MMDORIS /[id number]
== END 2021-01-20 14:18 | disposition home or self-care (01) ==
LOC: JD.SDS 07:07
PROVIDERS: ATTEND Orthopaedic Surgery
DX: M16.12 Unilateral primary osteoarthritis, left hip (principal); F17.210 Nicotine dependence, cigarettes, uncomplicated; G89.29 Other chronic pain; G43.909 Migraine, unspecified, not intractable, without status migrainosus; E66.9 Obesity, unspecified; E78.00 Pure hypercholesterolemia, unspecified; Z98.890 Other specified postprocedural states; Z79.899 Other long term (current) drug therapy; Z88.1 Allergy status to other antibiotic agents; Z88.2 Allergy status to sulfonamides; Z88.8 Allergy status to other drugs, medicaments and biological substances; Z68.30 Body mass index [BMI] 30.0-30.9, adult
CPT/HCPCS: 27130; 36415; 73501; 86850; 86900; 86901; 97116; 97161; 97165; 97535; A9270; C1713; C1776; J0171; J0690; J0697; J1170; J1885; J2250; J2270; J2370; J2405; J2704; J3010; J3370; J7120; 01214; J3490

== ENCOUNTER 2021-01-21 12:23 | Emergency (ER) | payer BC ==
[2021-01-21] MEDS ORDERED: HYDROmorphone 0.5 MG/0.5 ML Syringe IVPUSH ONE (13:11)
[2021-01-21] MEDS ORDERED: Ondansetron 4 MG/2 ML SDV IVPUSH ONE (13:11)
[2021-01-21] MEDS ORDERED: Sodium Chloride 0.9% 1,000 ML IV STA (13:11)
[2021-01-21] MEDS ORDERED: Lidocaine 2% Jelly 5 ML Tube ONE (13:57)
[2021-01-21] MEDS ORDERED: Lidocaine 4% Top Soln 50 ML Bottle ONE (13:58)
[2021-01-21] MEDS ORDERED: Acetaminophen/Butalbital/Caffeine 325-50-40 MG Tab PO PRN (14:30)
--- NOTE | 2021-01-21 14:44 | PCM.SN.2 ---
- Free Text/Narrative Note: Called from ER to evaluate a post dural puncture headache. Dolores received a spinal anesthetic yesterday for her total hip replacement. She has a history of developing significant headaches following surgery in the past also under spinal anesthesia. She usually has to return to the ER for pain management and the hea daches resolve in a few days. Education provided regarding spinal headaches and options for treatment. She defers blood patch at this time. Dolores would like to proceed with a
--- NOTE | 2021-01-21 15:29 | PCM.SN.2 ---
- Free Text/Narrative Note: Called to the ER to evaluate Dolores for a post dural puncture headache. Dolores received a spinal anesthetic yesterday for a total hip replacement. She has a history of developing significant headaches following surgery in the past also under spinal anesthesia. She reports having to come to the ER for pain managemen t and the headaches resolve in a few days. The headache is positional and increases in intensity when upright, her arms/shoulders are sore as well. She was nauseated this morning and has not been able to keep down her medications including her pain medication for her hip. She has received Dilaudid and Zofran while in the ER and is feeling improvement. Education provided regarding management options. Dolores is not interested in a blood patch at this time as she has not needed one in the past. IV fluid bolus going at this time. Fiorcet order placed. Sphenopalatine Ganglion block placed per Mulugeta Ly CRNA. Dolores will stay for an additional hour and reevaluate the need for additional pain management.
--- NOTE | 2021-01-21 15:38 | PCM.PRNOTE ---
- Free Text/Narrative Note: Sphenopalatine ganglion block in ER The patient has been previously assessed by Zulema Byrnes CRNA due to positional tension headaches following subarachnoid block performed for the THR on 01/20/21. Patient received explanation about SPG block, possible nasal bleeding, and possible failed and/or non-efficient in headache relief. Patient agreed to try SPG block for pain relief and signed procedure consent. Patient has been positioned supine and flat with neck maximally extended. [place] nares copiously lubricated with 2% Lidocaine jelly. 15 cm cotton tip applicators encased in plastic tubing with injection ports were slowly introduced to both nares until contact with posterior nasopharyngeal wall. 4% Lidocaine was slowly and incrementally injected via injection ports over 15 minutes, total 10 cc ( 5 cc in each nostril). Patient stayed in supine position for 30 minutes. No local anesthetic toxicity noted. Patient tolerated the procedure well. Start: 14:19 End: 14:49
--- NOTE | 2021-01-21 16:10 | EDM.PDOC ---
ED HPI GENERAL MEDICAL PROBLEM - General Chief Complaint: Headache Stated Complaint: HEADACHE/BODYACHES/NAUSEA Time Seen by Provider: 01/21/21 12:30 Source of Information: Reports: Patient, Family, RN Notes Reviewed History Limitations: Reports: No Limitations - History of Present Illness INITIAL COMMENTS - FREE TEXT/NARRATIVE: Patient is a 60-year-old female presenting to the emergency department with complaints of severe headache, nausea, and vomiting. She had a left total hip completed yesterday and states that she has had a headache since that time. She has felt nauseous surgery, however vomiting just started today. She was not able to keep her pain medications down today. She describes it as an intense frontal headache which improves with lying flat and worsened significantly upon sitting up or standing. She verbalized that she has had difficulties with spinal anesthesia in the past as well. She denies any chest pain or shortness of breath. Headache Pain Score (Numeric/FACES): 10 - Related Data Allergies Allergy/AdvReac Type Severity Reaction Status Date / Time piperacillin [From Zosyn] Allergy Intermediate Rash Verified 01/21/21 16:16 red dye Allergy Intermediate Rash Verified 01/21/21 16:16 Sulfa (Sulfonamide Allergy Intermediate Rash Verified 01/21/21 16:16 Antibiotics) sulfamethoxazole Allergy Intermediate Rash Verified 01/21/21 16:16 [From Bactrim] tazobactam [From Zosyn] Allergy Intermediate Rash Verified 01/21/21 16:16 trimethoprim [From Bactrim] Allergy Intermediate Rash Verified 01/21/21 16:16 bupropion AdvReac Mild Headache Verified 01/21/21 16:16 meloxicam AdvReac Mild Nausea Verified 01/21/21 16:16 nitrofurantoin AdvReac Mild Nausea Verified 01/21/21 16:16 [From Macrobid] Home Meds: Home Meds ALPRAZolam [Xanax] 0.5 mg PO TID PRN 01/28/16 [History] FLUoxetine HCl [Fluoxetine HCl] 80 mg PO DAILY 07/06/17 [History] Cholecalciferol (Vitamin D3) [Vitamin D3] 5,000 unit PO DAILY 11/30/18 [History] Calcium Carbonate [Calcium] 600 mg PO BID 01/17/21 [History] Cranberry Fruit Extract [Cranberry] 500 mg PO BID 01/17/21 [History] Lactobacillus Acidophilus [Probiotic] 1 cap PO DAILY 01/17/21 [History] Multivitamin 1 tab PO DAILY 01/17/21 [History] Triamcinolone Acetonide [Kenalog 0.1% Crm] 1 dose TOP BID PRN 01/17/21 [History] Cyclobenzaprine [Flexeril] 10 mg PO BID PRN #20 tab 01/20/21 [Rx] Rivaroxaban [Xarelto] 10 mg PO DAILY #35 tab 01/20/21 [Rx] Acetaminophen/Butalbital/Caff [Fioricet 325-50-40 MG] 1 - 2 tab PO Q4H PRN #20 tab 01/21/21 [Rx] Ondansetron [Zofran ODT] 4 mg PO Q6H PRN #10 tab.dis 01/21/21 [Rx] oxyCODONE 1 - 2 tab PO Q4H PRN 01/21/21 [History] Past Medical History HEENT History: Reports: Other (See Below) Other HEENT History: upper plate, oral muscosal lesion Cardiovascular History: Reports: High Cholesterol Respiratory History: Reports: None Gastrointestinal History: Reports: GERD Other Gastrointestinal History: c diff Genitourinary History: Reports: Renal Calculus, UTI, Recurrent Other Genitourinary History: kidney stones, pylenonephritis, hematuria, hydronephrosis 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: Reports: Endometriosis, Other 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: x 2 Musculoskeletal History: Reports: Arthritis, Osteoarthritis Neurological History: Reports: Migraines, Other (See Below) Other Neuro History: trigeminal neuralgia with craniectomy, suboccipatial with neurostimulator electrodes Psychiatric History: Reports: Anxiety, Depression Endocrine/Metabolic History: Reports: Obesity/BMI 30+ Hematologic History: Reports: Anticoagulation Therapy Immunologic History: Reports: None Oncologic (Cancer) History: Reports: None Dermatologic History: Reports: None - Infectious Disease History Infectious Disease History: Reports: C-Difficile Other Infectious Disease History: 2016 - Past Surgical History Head Surgeries/Procedures: Reports: Craniotomy HEENT Surgical History: Reports: LASIK, Oral Surgery, Other (See Below) Other HEENT Surgeries/Procedures: surgical "buffer" placed between trigeminal nerve and proximal blood vessels that were pressing into it. GI Surgical History: Reports: Appendectomy, Cholecystectomy, Colonoscopy Female Surgical History: Reports: Section, Hysterectomy, Oophorectomy Neurological Surgical History: Reports: Other (See Below) Other Neurological Surgeries/Procedures: craniectomy aprox 20 years ago Musculoskeletal Surgical History: Reports: Hip Replacement, Knee Replacement, Shoulder Surgery, Other (See Below) Social & Family History - Family History Family Medical History: No Pertinent Family History - Tobacco Use Tobacco Use Status *Q: Current Every Day Tobacco User Years of Tobacco use: 25 Packs/Tins Daily: 0.2 - Caffeine Use Caffeine Use: Reports: Soda - Recreational Drug Use Recreational Drug Use: No - Living Situation & Occupation Living situation: Reports: , with Spouse Occupation: Retired ED ROS GENERAL - Review of Systems Review Of Systems: See Below Constitutional: Reports: No Symptoms. Denies: Fever, Chills HEENT: Reports: No Symptoms Respiratory: Reports: No Symptoms Cardiovascular: Reports: No Symptoms Endocrine: Reports: No Symptoms GI/Abdominal: Reports: Nausea, Vomiting. Denies: Abdominal Pain : Reports: No Symptoms Musculoskeletal: Reports: Other (postop right hip pain) Neurological: Reports: Headache Psychiatric: Reports: No Symptoms Hematologic/Lymphatic: Reports: No Symptoms Immunologic: Reports: No Symptoms - Physical Exam Exam: See Below Exam Limited By: No Limitations General Appearance: Alert, Mild Distress Eye Exam: Bilateral Eye: PERRL Head Exam: Atraumatic, Normocephalic Respiratory/Chest: No Respiratory Distress, Lungs Clear, Normal Breath Sounds, No Accessory Muscle Use, Chest Non-Tender Cardiovascular: Normal Peripheral Pulses, Regular Rate, Rhythm, No Edema, No Gallop, No JVD, No Murmur, No Rub GI/Abdominal: Normal Bowel Sounds, Soft, Non-Tender, No Organomegaly, No Distention, No Abnormal Bruit, No Mass Neuro Exam (Abbreviated): Alert, Oriented, CN II-XII Intact, Normal Cognition, Normal Gait, Normal Reflexes, No Motor/Sensory Deficits Extremities: Other (surgical dressing intact to right hip) Psychiatric: Normal Affect, Normal Mood Skin Exam: Warm, Dry, Intact, Normal Color, No Rash Course - Vital Signs Last Recorded V/S: Last Vital Signs Temp 97.6 F 01/21/21 12:32 Pulse 86 01/21/21 16:00 Resp 20 01/21/21 16:00 BP 96/62 01/21/21 16:00 Pulse Ox 95 01/21/21 16:00 - Orders/Labs/Meds Meds: Medications Discontinued Medications Generic Name Dose Route Start Last Admin Trade Name Brenna PRN Reason Stop Dose Admin Acetaminophen/Butalbital/Caffeine 2 tab 01/21/21 14:30 01/21/21 14:44 Acetaminophen/Butalbital/Caffeine 325-50-40 Mg Tab PO 2 tab Q6H PRN Administration Headache Hydromorphone HCl 0.5 mg 01/21/21 13:11 01/21/21 13:24 Hydromorphone 0.5 Mg/0.5 Ml Syringe IVPUSH 01/21/21 13:12 0.5 mg ONETIME ONE Administration Sodium Chloride 1,000 mls @ 999 mls/hr 01/21/21 13:11 01/21/21 13:22 Normal Saline IV 01/21/21 14:11 999 mls/hr NOW STA Administration Lidocaine HCl Confirm 01/21/21 13:57 Lidocaine 2% Jelly 5 Ml Tube Administered 01/21/21 13:58 Dose 5 ml .ROUTE .STK-MED ONE Lidocaine HCl Confirm 01/21/21 13:58 Lidocaine 4% Top Soln 50 Ml Bottle Administered 01/21/21 13:59 Dose 50 ml .ROUTE .STK-MED ONE Ondansetron HCl 4 mg 01/21/21 13:11 01/21/21 13:23 Ondansetron 4 Mg/2 Ml Sdv IVPUSH 01/21/21 13:12 4 mg ONETIME ONE Administration Ondansetron HCl 4 mg 01/21/21 16:14 Ondansetron 4 Mg Tab.Dis PO 01/21/21 16:15 ONETIME ONE - Re-Assessments/Exams Free Text/Narrative Re-Assessment/Exam: Patient is a 60-year-old female presenting to the emergency department with complaints of severe postop headache which began after surgery yesterday. She did have spinal anesthesia for her right total hip replacement. She describes the headache as a intense, sharp, frontal headache that worsened significantly upon standing and improved with lying flat. She has had nausea since surgery and just started vomiting today. Exam findings are consistent with a spinal headache. I have ordered a 1 L bolus of normal saline, Dilaudid 0.5 mg IV, and Zofran 4 mg IV. Spoke with DAKSHA, Izzy, and she will be over to see the patient to discuss possibility of blood patch. 01/21/21 1520 Patient was seen by both Izzy and DAKSHA Dalal. She had a sphenopalatine ganglion block completed. She also received Fioricet 2 tabs approximately 30 minutes ago. Lying flat, patient states that her headache has essentially resolved, however when I moved her from a lying to a sitting position it did return fairly significantly, however better than it was originally. I laid her flat and we will give her additional 30 minutes for the Fioricet to work and then reassess. 01/21/21 16:10 I was in to see the patient again. DAKSHA Magana, was in the room as well. Patient is sitting in the upright position and the headache is much improved. She is ready to go home. I will send a prescription for Fioricet as well as Zofran ODT. Discussed that she should monitor her acetaminophen intake as Fioricet does contain 325 mg of acetaminophen. She is in agreement with this. Discharge instructions as documented. Departure - Departure Time of Disposition: 16:12 Disposition: Home, Self-Care 01 Condition: Good Clinical Impression: Spinal puncture headache - Discharge Information *PRESCRIPTION DRUG MONITORING PROGRAM REVIEWED*: Yes *COPY OF PRESCRIPTION DRUG MONITORING REPORT IN PATIENT LINDA: No Prescriptions: Acetaminophen/Butalbital/Caff [Fioricet 325-50-40 MG] 1 - 2 tab PO Q4H PRN #20 tab PRN Reason: Headache Ondansetron [Zofran ODT] 4 mg PO Q6H PRN #10 tab.dis PRN Reason: Nausea/Vomiting Instructions: Spinal Headache Referrals: Candida Jimenez NP [Primary Care Provider] - Forms: ED Department Discharge Additional Instructions: You were seen in the emergency department today for evaluation and treatment of a severe headache with nausea and vomiting after having a left total hip replacement done yesterday. Your exam findings were consistent with a diagnosis of a spinal headache related to the spinal anesthesia you had completed yesterday. While in the ER, you received IV fluids, nausea medication, and pain medication. You also had a sphenopalatine ganglion block completed. This did significantly improve your symptoms. You have been provided with a prescription for Fioricet for headache as well as Zofran for nausea. Take these medications as prescribed. Be aware that she did receive 2 tablets of Fioricet in the emergency department. Ensure that you do not take in more than 4000 mg of acetaminophen from all sources within a 24-hour period. The Fioricet tablets do have 325 mg of Tylenol per tablet. If you should experience a worsening in symptoms or any other symptoms of concern, please do not hesitate to return to the emergency department for reevaluation. Sepsis Event Note (ED) - Evaluation Sepsis Screening Result: No Definite Risk
[2021-01-21] MEDS ORDERED: Ondansetron 4 MG Tab.DIS PO ONE (16:14)
[2021-01-21 16:44] VITALS: BP 96/62; PULSE 86
--- NOTE | 2021-01-31 15:13 | PCM.SN.2 ---
- Free Text/Narrative Note: Follow up phone all regarding epidural blood patch placed on 01/24/21. Dolores is feeling well. She no longer has a headache and it did resolve with her blood patch. She is unhappy regarding the situation and does feel she should not have had to return to the ER for management on 3 separate occasions. She also is not happy with the sphenopalatine ganglion block and found it to be very uncomfortable. She has no further questions at this time.
== END 2021-01-21 16:30 | disposition home or self-care (01) ==
LOC: JD.ED 12:23
DX: T88.59XA Other complications of anesthesia, initial encounter (principal); G44.40 Drug-induced headache, not elsewhere classified, not intractable
CPT/HCPCS: 64505; 96374; 96375; 99283-25; 99284; A9270-GY; J1170; J2405; J7030

== ENCOUNTER 2021-01-22 10:05 | Emergency (ER) | payer BC ==
[2021-01-22 10:24] VITALS: BP 119/72; PULSE 78
--- NOTE | 2021-01-22 11:26 | EDM.PDOC ---
ED HPI GENERAL MEDICAL PROBLEM - General Chief Complaint: Chest Pain Stated Complaint: CHEST PAIN/HEADACHE/NAUSEA Time Seen by Provider: 01/22/21 10:16 Source of Information: Reports: Patient History Limitations: Reports: No Limitations - History of Present Illness INITIAL COMMENTS - FREE TEXT/NARRATIVE: 60-year-old female presents to the emergency department today with complaints of headache that has not resolved since having spinal anesthesia 2 days ago. The patient had a spinal block for total hip replacement that was completed on Wednesday with Dr. Zapata. She states that since then she has had an unbearable frontal headache that has not resolved. She states that the headache pain is tolerable when laying flat in bed however when she sits up or stands it is excruciating and it causes her nausea and vomiting. She was seen in our emergency department yesterday and the CRNAs,Mulugeta Aguiar , and Izzy Byrnes both saw the patient. Apparently they performed SPG block on the patient however she states that this did nothing for her headache. She states that nothing has changed from her symptoms or treatment that she received in the emergency department yesterday. She denies any blurred vision or double vision. She denies any fever or chills. She states that her CMS is still positive to her bilateral lower extremities. She has no numbness or tingling and she does have full sensation to lower extremities. She denies any pain in her back at the insertion site from the spinal. She denies any issues with bowel or bladder. She initially stated she had chest pain however upon clarification she states that she has pain in both of her shoulders which feels like somebody is squeezing and tensing up her muscles. She states she has also had this in the past with prior spinal taps. She states she took a Fioricet at about 0630 this morning and states that it has not helped much. - Related Data Allergies Allergy/AdvReac Type Severity Reaction Status Date / Time piperacillin [From Zosyn] Allergy Intermediate Rash Verified 01/21/21 16:16 red dye Allergy Intermediate Rash Verified 01/21/21 16:16 Sulfa (Sulfonamide Allergy Intermediate Rash Verified 01/21/21 16:16 Antibiotics) sulfamethoxazole Allergy Intermediate Rash Verified 01/21/21 16:16 [From Bactrim] tazobactam [From Zosyn] Allergy Intermediate Rash Verified 01/21/21 16:16 trimethoprim [From Bactrim] Allergy Intermediate Rash Verified 01/21/21 16:16 bupropion AdvReac Mild Headache Verified 01/21/21 16:16 meloxicam AdvReac Mild Nausea Verified 01/21/21 16:16 nitrofurantoin AdvReac Mild Nausea Verified 01/21/21 16:16 [From Macrobid] Home Meds: Home Meds ALPRAZolam [Xanax] 0.5 mg PO TID PRN 01/28/16 [History] FLUoxetine HCl [Fluoxetine HCl] 80 mg PO DAILY 07/06/17 [History] Cholecalciferol (Vitamin D3) [Vitamin D3] 5,000 unit PO DAILY 11/30/18 [History] Calcium Carbonate [Calcium] 600 mg PO BID 01/17/21 [History] Cranberry Fruit Extract [Cranberry] 500 mg PO BID 01/17/21 [History] Lactobacillus Acidophilus [Probiotic] 1 cap PO DAILY 01/17/21 [History] Multivitamin 1 tab PO DAILY 01/17/21 [History] Triamcinolone Acetonide [Kenalog 0.1% Crm] 1 dose TOP BID PRN 01/17/21 [History] Cyclobenzaprine [Flexeril] 10 mg PO BID PRN #20 tab 01/20/21 [Rx] Rivaroxaban [Xarelto] 10 mg PO DAILY #35 tab 01/20/21 [Rx] Acetaminophen/Butalbital/Caff [Fioricet 325-50-40 MG] 1 - 2 tab PO Q4H PRN #20 tab 01/21/21 [Rx] Ondansetron [Zofran ODT] 4 mg PO Q6H PRN #10 tab.dis 01/21/21 [Rx] oxyCODONE 1 - 2 tab PO Q4H PRN 01/21/21 [History] Past Medical History HEENT History: Reports: Other (See Below) Other HEENT History: upper plate, oral muscosal lesion Cardiovascular History: Reports: High Cholesterol Respiratory History: Reports: None Gastrointestinal History: Reports: GERD Other Gastrointestinal History: c diff Genitourinary History: Reports: Renal Calculus, UTI, Recurrent Other Genitourinary History: kidney stones, pylenonephritis, hematuria, hydronephrosis LUMBER TRIPPER History: Reports: Endometriosis, Other LUMBER TRIPPER History: x 2 Musculoskeletal History: Reports: Arthritis, Osteoarthritis Neurological History: Reports: Migraines, Other (See Below) Other Neuro History: trigeminal neuralgia with craniectomy, suboccipatial with neurostimulator electrodes Psychiatric History: Reports: Anxiety, Depression Endocrine/Metabolic History: Reports: Obesity/BMI 30+ Hematologic History: Reports: Anticoagulation Therapy Immunologic History: Reports: None Oncologic (Cancer) History: Reports: None Dermatologic History: Reports: None - Infectious Disease History Infectious Disease History: Reports: C-Difficile Other Infectious Disease History: 2016 - Past Surgical History Head Surgeries/Procedures: Reports: Craniotomy HEENT Surgical History: Reports: LASIK, Oral Surgery, Other (See Below) Other HEENT Surgeries/Procedures: surgical "buffer" placed between trigeminal nerve and proximal blood vessels that were pressing into it. Cardiovascular Surgical History: Reports: None Respiratory Surgical History: Reports: None GI Surgical History: Reports: Appendectomy, Cholecystectomy, Colonoscopy Female Surgical History: Reports: Section, Hysterectomy, Oophorectomy Endocrine Surgical History: Reports: None Neurological Surgical History: Reports: Other (See Below) Other Neurological Surgeries/Procedures: craniectomy aprox 20 years ago Musculoskeletal Surgical History: Reports: Hip Replacement, Knee Replacement, Shoulder Surgery, Other (See Below) Oncologic Surgical History: Reports: None Dermatological Surgical History: Reports: None Social & Family History - Family History Family Medical History: No Pertinent Family History - Caffeine Use Caffeine Use: Reports: Soda - Living Situation & Occupation Living situation: Reports: , with Spouse Occupation: Retired ED ROS GENERAL - Review of Systems Review Of Systems: Comprehensive ROS is negative, except as noted in HPI. - Physical Exam Exam: See Below Exam Limited By: No Limitations General Appearance: Alert, WD/WN, Mild Distress Ears: Normal External Exam, Hearing Grossly Normal Nose: Normal Inspection Throat/Mouth: Normal Inspection, Normal Lips, Normal Voice, No Airway Compromise Head Exam: Atraumatic, Normocephalic Neck: Normal Inspection Respiratory/Chest: No Respiratory Distress, Lungs Clear, Normal Breath Sounds, No Accessory Muscle Use, Chest Non-Tender Cardiovascular: Normal Peripheral Pulses, Regular Rate, Rhythm, No Edema, No Murmur GI/Abdominal: Normal Bowel Sounds, Soft, Non-Tender, No Distention (Female) Exam: Deferred Rectal (Female) Exam: Deferred Neuro Exam (Abbreviated): Alert, Oriented, Normal Cognition Back Exam: Normal Inspection, Full Range of Motion Extremities: Normal Inspection, Normal Range of Motion, Non-Tender, No Pedal Edema, Normal Capillary Refill, Other (surgical dressing noted to left hip is clean, dry and intact) Psychiatric: Normal Affect, Normal Mood Skin Exam: Warm, Dry, Intact, Normal Color, No Rash Course - Vital Signs Text/Narrative:: At this point I do not feel like I need to repeat all labs and procedures that were completed when she was seen yesterday in the emergency department. I have called the [employer] who is on-call, Mulugeta Aguiar to come in and reevaluate the patient. Apparently he had mentioned to the patient yesterday that they possibly could do a blood patch on the patient however they would optimally like to wait 72 hours post surgery. He is currently in the middle of a surgical case but he states he will come over and evaluate the patient once the case is completed. I did discuss this with the patient and she is agreeable to wait to be seen till after he is done with surgery. Last Recorded V/S: Last Vital Signs Temp Pulse 78 01/22/21 10:16 Resp 20 01/22/21 10:16 BP 119/72 01/22/21 10:16 Pulse Ox 98 01/22/21 10:16 - Orders/Labs/Meds Orders: Active Orders 24 hr Category Date Time Status EKG 12 Lead [EKG Documentation Completion] [RC] STAT Care 01/22/21 10:28 Active Peripheral IV Care [RC] . DIRECTED Care 01/22/21 11:30 Active Verify Patient Consent Obtain [RC] ASDIRECTED Care 01/22/21 11:30 Active HYDROmorphone [Dilaudid] Med 01/22/21 11:30 Active 0.5 mg IVPUSH Q10M PRN Lactated Ringers [Ringers, Lactated] 1,000 ml Med 01/22/21 11:30 Active IV ASDIRECTED Lidocaine 1%/Sod Bicarbonate [Buffered Lidocaine 1% in Med 01/22/21 11:30 Active NS 8.4%] 0.25 ml IDERM ONETIME PRN Midazolam [Versed 1 MG/ML] Med 01/22/21 11:30 Active 2 mg IVPUSH ONETIME PRN Ondansetron [Zofran] Med 01/22/21 11:30 Active 4 mg IVPUSH ONETIME PRN Sodium Chloride 0.9% [Saline Flush] Med 01/22/21 11:30 Active 10 ml FLUSH ASDIRECTED PRN Medication Administration Instruction [OM.PC] Routine Oth 01/22/21 11:30 Ordered Peripheral IV Insertion Adult [OM.PC] Routine Oth 01/22/21 11:30 Ordered Medication Orders Hydromorphone HCl (Hydromorphone 0.5 Mg/0.5 Ml Syringe) 0.5 mg IVPUSH Q10M PRN PRN Reason: Pain (severe 7-10) Stop: 01/22/21 18:00 Last Admin: 01/22/21 12:14 Dose: 0.5 mg Documented by: KASEY Lactated Ringer's (Ringers, Lactated) 1,000 mls @ 125 mls/hr IV ASDIRECTED ODALYS Stop: 01/22/21 23:00 Last Admin: 01/22/21 12:09 Dose: 125 mls/hr Documented by: KASEY Lidocaine/Sodium Bicarbonate (Lidocaine 1%/Sod Bicarbonate In Ns 8.4% 1 Ml Syringe) 0.25 ml IDERM ONETIME PRN PRN Reason: Prior to IV Start Stop: 01/22/21 18:00 Midazolam HCl (Midazolam 1 Mg/Ml 2 Ml Sdv) 2 mg IVPUSH ONETIME PRN PRN Reason: Sedation Stop: 01/22/21 18:00 Last Admin: 01/22/21 12:15 Dose: 2 mg Documented by: KASEY Ondansetron HCl (Ondansetron 4 Mg/2 Ml Sdv) 4 mg IVPUSH ONETIME PRN PRN Reason: Nausea/Vomiting Stop: 01/22/21 18:00 Last Admin: 01/22/21 12:10 Dose: 4 mg Documented by: KASEY Sodium Chloride (Sodium Chloride 0.9% 10 Ml Syringe) 10 ml FLUSH ASDIRECTED PRN PRN Reason: Keep Vein Open Stop: 01/22/21 18:00 Last Admin: 01/22/21 12:20 Dose: 10 ml Documented by: KASEY Meds: Medications Generic Name Dose Route Start Last Admin Trade Name Freq PRN Reason Stop Dose Admin Hydromorphone HCl 0.5 mg 01/22/21 11:30 01/22/21 12:14 Hydromorphone 0.5 Mg/0.5 Ml Syringe IVPUSH 01/22/21 18:00 0.5 mg Q10M PRN Administration Pain (severe 7-10) Lactated Ringer's 1,000 mls @ 125 mls/hr 01/22/21 11:30 01/22/21 12:09 Ringers, Lactated IV 01/22/21 23:00 125 mls/hr ASDIRECTED ODALYS Administration Lidocaine/Sodium Bicarbonate 0.25 ml 01/22/21 11:30 Lidocaine 1%/Sod Bicarbonate In Ns 8.4% 1 Ml Syringe IDERM 01/22/21 18:00 ONETIME PRN Prior to IV Start Midazolam HCl 2 mg 01/22/21 11:30 01/22/21 12:15 Midazolam 1 Mg/Ml 2 Ml Sdv IVPUSH 01/22/21 18:00 2 mg ONETIME PRN Administration Sedation Ondansetron HCl 4 mg 01/22/21 11:30 01/22/21 12:10 Ondansetron 4 Mg/2 Ml Sdv IVPUSH 01/22/21 18:00 4 mg ONETIME PRN Administration Nausea/Vomiting Sodium Chloride 10 ml 01/22/21 11:30 01/22/21 12:20 Sodium Chloride 0.9% 10 Ml Syringe FLUSH 01/22/21 18:00 10 ml ASDIRECTED PRN Administration Keep Vein Open Discontinued Medications Generic Name Dose Route Start Last Admin Trade Name Freq PRN Reason Stop Dose Admin Ketorolac Tromethamine 30 mg 01/22/21 11:37 01/22/21 12:12 Ketorolac 30 Mg/Ml Sdv IVPUSH 01/22/21 11:38 30 mg ONETIME ONE Administration - Re-Assessments/Exams Free Text/Narrative Re-Assessment/Exam: 01/22/21 11:46 Qian Toney CRNA here to evaluate the patient. See her attached note. She also requests that I order Toradol for the headache in addition to her orders. Pt will be monitored for about another hour and then be allowed to be discharged to home. She will have a blood patch placed on Wednesday morning. 01/22/21 14:30 The patient reports feeling much better and is requesting to go home at this [facility]. She will be instructed to return to the emergency department on January 24 at 8 AM as she will have a blood patch placed by anesthesia. Departure - Departure Time of Disposition: 14:32 Disposition: Home, Self-Care 01 Condition: Good Clinical Impression: Spinal puncture headache - Discharge Information Instructions: Spinal Headache Referrals: Candida Jimenez NP [Primary Care Provider] - Forms: ED Department Discharge Additional Instructions: You were seen in the emergency department today with complaints of a headache that started after receiving spinal anesthesia 2 days ago. Anesthesia services were called to evaluate you. You did take your Xarelto this morning, however so they were not able to do a blood patch today. We did give you medication to help with your headache. You will be discharged to home with recommendations that you go home and lay flat. You are scheduled to have a blood patch on January 24 at 8:00am. You will need to register in the emergency department and then anesthesia services will see you. Do not take your Xarelto tomorrow. I spoke with Beatrice Sheriff, nurse practitioner for orthopedic services and she request that you take Lovenox injections scheduled tomorrow morning at 7 AM and 1 more tomorrow evening at 7 PM. She has sent a prescription to your pharmacy for this medication. Then do NOT take your Xarelto on Wednesday morning prior to your procedure. Sepsis Event Note (ED) - Evaluation Sepsis Screening Result: No Definite Risk - Focused Exam Vital Signs: Vital Signs Pulse Resp BP Pulse Ox 01/22/21 10:16 78 20 119/72 98 - My Orders Last 24 Hours: My Active Orders 01/22/21 10:28 EKG 12 Lead [EKG Documentation Completion] [RC] STAT - Assessment/Plan Last 24 Hours: My Active Orders 01/22/21 10:28 EKG 12 Lead [EKG Documentation Completion] [RC] STAT
[2021-01-22] MEDS ORDERED: Lactated Ringers 1,000 ML IV SCH (11:30)
[2021-01-22] MEDS ORDERED: Midazolam 1 MG/ML 2 ML SDV IVPUSH PRN (11:30)
[2021-01-22] MEDS ORDERED: Sodium Chloride 0.9% 10 ML Syringe FLUSH PRN (11:30)
[2021-01-22] MEDS ORDERED: Ondansetron 4 MG/2 ML SDV IVPUSH PRN (11:30)
[2021-01-22] MEDS ORDERED: Lidocaine 1%/Sod Bicarbonate in NS 8.4% 1 ML Syringe IDERM PRN (11:30)
[2021-01-22] MEDS ORDERED: HYDROmorphone 0.5 MG/0.5 ML Syringe IVPUSH PRN (11:30)
[2021-01-22] MEDS ORDERED: Ketorolac 30 MG/ML SDV IVPUSH ONE (11:37)
--- NOTE | 2021-01-22 12:30 | PCM.SN.2 ---
- Free Text/Narrative Note: Anesthesia Note: Start: 1130 Stop: 1215 Patient returns to ER with continual complaints of positional headache. Vital signs are stable, patient is laying flat and states pain is 1/10, and when she stands or sits upright it is a 10/10. Patient educated, reassured, and advised to have a blood patch performed for her post dural puncture headache. Patient last took xarelto at 0900 today on 01/22/2021. Beatrice JACOB, informed and mutual plan of care presented to patient and her , [place]. 1. Stop xarelto 2. Start lovenox tomorrow 0700 and 1900. 3. Continue bed rest, drink plenty of caffeinated fluids, and maintain pain management as directed for post hip surgery. 4. If headache pain is not better on Wednesday, patient instructed to go to ER, register for blood patch placement. (Wednesday01/24/21 @ 0800) Patient resting comfortably in ER with 1 liter of fluids infusing, 0.5mg dilauded IV, 2mg versed IV, zofran 4mg IV, and toradol 30mg IV. Thank you, Qian CROOKS
== END 2021-01-22 14:40 | disposition home or self-care (01) ==
LOC: JD.ED 10:05
DX: G97.1 Other reaction to spinal and lumbar puncture (principal); E66.9 Obesity, unspecified; Z68.30 Body mass index [BMI] 30.0-30.9, adult; Z88.1 Allergy status to other antibiotic agents; Z91.041 Radiographic dye allergy status; Z88.2 Allergy status to sulfonamides; Z88.8 Allergy status to other drugs, medicaments and biological substances; Z79.01 Long term (current) use of anticoagulants; Z79.899 Other long term (current) drug therapy
CPT/HCPCS: 93005; 96374; 96375; 99284; J1170; J1885; J2250; J2405; J7120; 99283

== ENCOUNTER 2021-01-24 07:51 | Emergency (ER) | payer BC ==
[2021-01-24 08:05] VITALS: BP 120/61; PULSE 76
[2021-01-24] MEDS ORDERED: Ketorolac 30 MG/ML SDV IVPUSH ONE ×2 (09:40)
--- NOTE | 2021-01-24 09:54 | PCM.SN.2 ---
- Free Text/Narrative Note: Anesthesia Note: Procedure: PDPH post spinal anesthetic for total hip surgery on 01/20/2021: BLOOD PATCH WARRANTED. Time Out: 904 Start: 904 Stop: 937 Patient returns to ER as directed for treatment of PDPH. Patient states headache continues to be positional with rating at 6/10 when standing. Patient educated on risk/benefits of blood patch, consent obtained. 1 liter LR infusing, VSS. Patient sitting up. L3-L4 area noted and cleansed with 3 betadine swabs. Sterile technique noted and area localized with 3ml's of lidocaine. 17 gauge tuohy epidural needle advanced with HERBER noted at 5cm. 20ml's of autologous blood obtained via sterile technique and injected through epidural needle. Bandaid placed and patient positioned supine and instructed to lay flat for one hour while LR continued to be infused. Tordal 30mg IV given for pain. Patient and ([place]) informed and instructed to not take any NSAIDS for 6 hours, and to resume Xarelto at 1700 tonight 01/24/2021. Matthew JACOB informed and updated on current treatment regimen. Thank you! Qian CROOKS
--- NOTE | 2021-01-24 10:03 | EDM.PDOC ---
ED HPI GENERAL MEDICAL PROBLEM - General Chief Complaint: Headache Stated Complaint: HERE FOR A BLOOD PATCH Time Seen by Provider: 01/24/21 08:10 Source of Information: Reports: Patient, Family (spouse) History Limitations: Reports: No Limitations - History of Present Illness INITIAL COMMENTS - FREE TEXT/NARRATIVE: 60-year-old female presents to the ED for evaluation of persistent headache post epidural anesthetic for right hip replacement which was done on January 20. Surgery was performed by Dr. Zapata. Patient had prearranged to see DAKSHA ZARATE for a blood patch to tentatively improve her headache. Patient's headache is worse with standing. She prefers to lie down. She has not been taking adequate fluids. Taking pain medicine for hip and headache with only mild improvement. No associated nausea vomiting.. No blurred vision. Onset: Gradual Onset Date: 01/21/21 Duration: Day(s): (Started the day after the procedure was carried out.), Constant, Getting Worse Location: Reports: Head (Generalized headache worse occipital aspect of her) Quality: Reports: Ache ( head.), Throbbing, Other Severity: Severe (Saline 8 out of 10) Improves with: Reports: Rest Worsens with: Reports: Other Context: Reports: Other (Postoperative). Denies: Activity, Exercise (Ending and walking make the headache worse.), Lifting, Sick Contact, Trauma Associated Symptoms: Reports: Headaches, Loss of Appetite, Malaise, Nausea/Vomiting. Denies: Confusion ( epidural or spinal headache suspect.), Chest Pain, Cough, cough w sputum, Diaphoresis, Fever/Chills, Rash, Seizure, Shortness of Breath (Nausea without vomiting), Syncope, Weakness Treatments ORIENTAL MEDICINE PRACTITIONER: Reports: Acetaminophen, Other (see below) (Oxycodone 5/325 mg tabs.) head Pain Score (Numeric/FACES): 4 - Related Data Allergies Allergy/AdvReac Type Severity Reaction Status Date / Time piperacillin [From Zosyn] Allergy Intermediate Rash Verified 01/21/21 16:16 red dye Allergy Intermediate Rash Verified 01/21/21 16:16 Sulfa (Sulfonamide Allergy Intermediate Rash Verified 01/21/21 16:16 Antibiotics) sulfamethoxazole Allergy Intermediate Rash Verified 01/21/21 16:16 [From Bactrim] tazobactam [From Zosyn] Allergy Intermediate Rash Verified 01/21/21 16:16 trimethoprim [From Bactrim] Allergy Intermediate Rash Verified 01/21/21 16:16 bupropion AdvReac Mild Headache Verified 01/21/21 16:16 meloxicam AdvReac Mild Nausea Verified 01/21/21 16:16 nitrofurantoin AdvReac Mild Nausea Verified 01/21/21 16:16 [From Macrobid] Home Meds: Home Meds ALPRAZolam [Xanax] 0.5 mg PO TID PRN 01/28/16 [History] FLUoxetine HCl [Fluoxetine HCl] 80 mg PO DAILY 07/06/17 [History] Cholecalciferol (Vitamin D3) [Vitamin D3] 5,000 unit PO DAILY 11/30/18 [History] Calcium Carbonate [Calcium] 600 mg PO BID 01/17/21 [History] Cranberry Fruit Extract [Cranberry] 500 mg PO BID 01/17/21 [History] Lactobacillus Acidophilus [Probiotic] 1 cap PO DAILY 01/17/21 [History] Multivitamin 1 tab PO DAILY 01/17/21 [History] Triamcinolone Acetonide [Kenalog 0.1% Crm] 1 dose TOP BID PRN 01/17/21 [History] Cyclobenzaprine [Flexeril] 10 mg PO BID PRN #20 tab 01/20/21 [Rx] Rivaroxaban [Xarelto] 10 mg PO DAILY #35 tab 01/20/21 [Rx] Acetaminophen/Butalbital/Caff [Fioricet 325-50-40 MG] 1 - 2 tab PO Q4H PRN #20 tab 01/21/21 [Rx] Ondansetron [Zofran ODT] 4 mg PO Q6H PRN #10 tab.dis 01/21/21 [Rx] oxyCODONE 1 - 2 tab PO Q4H PRN 01/21/21 [History] Past Medical History HEENT History: Reports: Other (See Below) Other HEENT History: upper plate, oral muscosal lesion Cardiovascular History: Reports: High Cholesterol Respiratory History: Reports: None Gastrointestinal History: Reports: GERD Other Gastrointestinal History: c diff Genitourinary History: Reports: Renal Calculus, UTI, Recurrent Other Genitourinary History: kidney stones, pylenonephritis, hematuria, hydronephrosis 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 HOME SET UP PERSON History: Reports: Endometriosis, Other MOBILE HOME SET UP PERSON History: x 2 Musculoskeletal History: Reports: Arthritis, Osteoarthritis Neurological History: Reports: Migraines, Other (See Below) Other Neuro History: trigeminal neuralgia with craniectomy, suboccipatial with neurostimulator electrodes Psychiatric History: Reports: Anxiety, Depression Endocrine/Metabolic History: Reports: Obesity/BMI 30+ Hematologic History: Reports: Anticoagulation Therapy Immunologic History: Reports: None Oncologic (Cancer) History: Reports: None Dermatologic History: Reports: None - Infectious Disease History Infectious Disease History: Reports: C-Difficile Other Infectious Disease History: 2016 - Past Surgical History Head Surgeries/Procedures: Reports: Craniotomy HEENT Surgical History: Reports: LASIK, Oral Surgery, Other (See Below) Other HEENT Surgeries/Procedures: surgical "buffer" placed between trigeminal nerve and proximal blood vessels that were pressing into it. Cardiovascular Surgical History: Reports: None Respiratory Surgical History: Reports: None GI Surgical History: Reports: Appendectomy, Cholecystectomy, Colonoscopy Female Surgical History: Reports: Section, Hysterectomy, Oophorectomy Endocrine Surgical History: Reports: None Neurological Surgical History: Reports: Other (See Below) Other Neurological Surgeries/Procedures: craniectomy aprox 20 years ago Musculoskeletal Surgical History: Reports: Hip Replacement, Knee Replacement, Shoulder Surgery, Other (See Below) Oncologic Surgical History: Reports: None Dermatological Surgical History: Reports: None Social & Family History - Family History Family Medical History: No Pertinent Family History - Tobacco Use Tobacco Use Status *Q: Current Some Day Tobacco User Years of Tobacco use: 25 Packs/Tins Daily: 0.2 - Caffeine Use Caffeine Use: Reports: Soda - Recreational Drug Use Recreational Drug Use: No - Living Situation & Occupation Living situation: Reports: , with Spouse Occupation: Retired ED ROS GENERAL - Review of Systems Review Of Systems: See Below Constitutional: Reports: Malaise, Weakness, Fatigue, Decreased Appetite. Denies: Fever, Chills HEENT: Reports: Glasses Respiratory: Reports: No Symptoms Cardiovascular: Reports: No Symptoms Endocrine: Reports: Fatigue GI/Abdominal: Reports: Nausea : Reports: No Symptoms Musculoskeletal: Reports: Other (Right hip pain postop pain.) Skin: Reports: No Symptoms Neurological: Reports: Dizziness, Headache, Difficulty Walking (Due to the severity of the headache.). Denies: Numbness, Syncope, Tingling, Weakness Psychiatric: Reports: Anxiety ( Also due to pain in the right hip. Using a walker to aid ambulation.), Depression Hematologic/Lymphatic: Reports: No Symptoms Immunologic: Reports: No Symptoms - Physical Exam Exam: See Below Exam Limited By: No Limitations General Appearance: Alert, WD/WN, No Apparent Distress, Other (Temperature is 36.3 degrees. Heart rate 76 and sinus respiratory is 18 BP 120/61 with O2 sats of 98% room air.) Eye Exam: Bilateral Eye: Normal Inspection Throat/Mouth: Normal Inspection, Normal Lips, Normal Oropharynx Head Exam: Atraumatic, Normocephalic Neck: Tender Lateral. No: Lymphadenopathy (L), Lymphadenopathy (R) Respiratory/Chest: No Respiratory Distress, Lungs Clear, Normal Breath Sounds, No Accessory Muscle Use Cardiovascular: Normal Peripheral Pulses, Regular Rate, Rhythm, No Edema, No Gallop, No Murmur, No Rub GI/Abdominal: Normal Bowel Sounds, Soft, Non-Tender, No Organomegaly, No Mass, Pelvis Stable Neuro Exam (Abbreviated): Alert, Oriented, CN II-XII Intact, Normal Cognition, No Motor/Sensory Deficits. No: Normal Gait Back Exam: Normal Inspection, Other (Noticed over epidural site without any hematoma.) Extremities: Other (Recent right total hip repair. Wound is covered with bandages. It was not undressed) Psychiatric: Normal Affect, Normal Mood Skin Exam: Warm, Dry, Intact, Normal Color, No Rash Course - Vital Signs Last Recorded V/S: Last Vital Signs Temp 36.3 C 01/24/21 08:02 Pulse 76 01/24/21 08:02 Resp 18 01/24/21 08:02 BP 120/61 01/24/21 08:02 Pulse Ox 98 01/24/21 08:02 - Orders/Labs/Meds Meds: Medications Discontinued Medications Generic Name Dose Route Start Last Admin Trade Name Freq PRN Reason Stop Dose Admin Ketorolac Tromethamine 30 mg 01/24/21 09:40 01/24/21 09:43 Ketorolac 30 Mg/Ml Sdv IVPUSH 01/24/21 09:41 Not Given ONETIME ONE Ketorolac Tromethamine 30 mg 01/24/21 09:40 01/24/21 09:45 Ketorolac 30 Mg/Ml Sdv IVPUSH 01/24/21 09:41 30 mg ONETIME ONE Administration - Radiology Interpretation Free Text/Narrative:: 60-year-old female presents to the ED with a prearrangement to see Qian Redding -TELEVISION ANCHOR for a blood patch post epidural anesthetic that was performed on January 20 for a right total hip replacement. Patient has had a persistent and worsening headache since that time. Pain headache is worse with standing and better with lying still and resting. Patient attends the ED to have blood patch performed. Qian Redding did attend the patient in the ED and did perform a blood patch and she discharged from the ED. Departure - Departure Time of Disposition: 09:45 Disposition: Home, Self-Care 01 Condition: Fair Clinical Impression: Spinal puncture headache - Discharge Information *PRESCRIPTION DRUG MONITORING PROGRAM REVIEWED*: Not Applicable *COPY OF PRESCRIPTION DRUG MONITORING REPORT IN PATIENT LINDA: Not Applicable Referrals: Candida Jimenez NP [Primary Care Provider] - Additional Instructions: Discharge information was provided to the patient per TELEVISION ANCHOR. She will return within 36 to 48 hours if headache persists. Sepsis Event Note (ED) - Evaluation Sepsis Screening Result: No Definite Risk - Focused Exam Vital Signs: Vital Signs Temp Pulse Resp BP Pulse Ox 01/24/21 08:02 36.3 C 76 18 120/61 98
== END 2021-01-24 10:51 | disposition home or self-care (01) ==
LOC: JD.ED 07:51
DX: G97.1 Other reaction to spinal and lumbar puncture (principal); E66.9 Obesity, unspecified; Z68.30 Body mass index [BMI] 30.0-30.9, adult; Z88.1 Allergy status to other antibiotic agents; Z91.041 Radiographic dye allergy status; Z88.2 Allergy status to sulfonamides; Z88.8 Allergy status to other drugs, medicaments and biological substances; Z79.899 Other long term (current) drug therapy; Z79.01 Long term (current) use of anticoagulants; Z72.0 Tobacco use
CPT/HCPCS: 96374; 99283; J1885; 62273

== ENCOUNTER 2021-08-14 06:57 | Day surgery (SDC) | payer BC ==
[~2021-08-14 06:57] MED LIST changes: -Acetaminophen 325 MG Tab PO SCH; +Lactated Ringers 1,000 ML IV SCH; -Pregabalin 25 MG Cap PO SCH; -oxyCODONE ER 10 MG TAB.ER PO SCH
[2021-08-14] MEDS ORDERED: oxyCODONE ER 10 MG TAB.ER PO SCH (07:00)
[2021-08-14] MEDS ORDERED: Acetaminophen 325 MG Tab PO SCH (07:00)
[2021-08-14] MEDS ORDERED: Pregabalin 25 MG Cap PO SCH (07:00)
[2021-08-14] MEDS ORDERED: EPINEPHrine 1 MG/ML SDV ONE (07:34)
[2021-08-14] MEDS ORDERED: Ropivacaine 0.5% 5 MG/ML 30 ML SDV ONE (07:34)
--- NOTE | 2021-08-14 07:53 | PCM.PREANE ---
Preanesthetic Assessment - Anesthesia/Transfusion/Family Hx Anesthesia History: Prior Anesthesia Reaction (Spinal headache) Family History of Anesthesia Reaction: No Transfusion History: No Prior Transfusion(s) Intubation History: Unknown - Review of Systems General: No Symptoms Pulmonary: No Symptoms Cardiovascular: No Symptoms Neurological: No Symptoms Other: Reports: None - Physical Assessment NPO Status Date: 08/13/21 NPO Status Time: 19:00 ASA Class: 2 Mental Status: Alert & Oriented x3 Airway Class: Mallampati = 2 Dentition: Reports: Dentures (upper) Thyro-Mental Finger Breadths: 3 Mouth Opening Finger Breadths: 3 ROM/Head Extension: Full Lungs: Clear to Auscultation, Normal Respiratory Effort Cardiovascular: Regular Rate, Regular Rhythm - Allergies Allergies/Adverse Reactions: Allergies Allergy/AdvReac Type Severity Reaction Status Date / Time piperacillin [From Zosyn] Allergy Intermediate Rash Verified 08/13/21 13:27 red dye Allergy Intermediate Rash Verified 08/13/21 13:27 Sulfa (Sulfonamide Allergy Intermediate Rash Verified 08/13/21 13:27 Antibiotics) sulfamethoxazole Allergy Intermediate Rash Verified 08/13/21 13:27 [From Bactrim] tazobactam [From Zosyn] Allergy Intermediate Rash Verified 08/13/21 13:27 trimethoprim [From Bactrim] Allergy Intermediate Rash Verified 08/13/21 13:27 bupropion AdvReac Mild Headache Verified 08/13/21 13:27 meloxicam AdvReac Mild Nausea Verified 08/13/21 13:27 nitrofurantoin AdvReac Mild Nausea Verified 08/13/21 13:27 [From Macrobid] - Acknowledgements Anesthesia Type Planned: General Anesthesia, Regional Block Pt an Appropriate Candidate for the Planned Anesthesia: Yes Alternatives and Risks of Anesthesia Discussed w Pt/Guardian: Yes Pt/Guardian Understands and Agrees with Anesthesia Plan: Yes PreAnesthesia Questionnaire HEENT History: Reports: Impaired Vision, Other (See Below) Other HEENT History: upper plate, oral muscosal lesion Cardiovascular History: Reports: High Cholesterol Respiratory History: Reports: None Gastrointestinal History: Reports: GERD Other Gastrointestinal History: c diff Genitourinary History: Reports: Renal Calculus, UTI, Recurrent, Other (See Below) Other Genitourinary History: kidney stones, pylenonephritis, hematuria, hydronephrosis TILE DITCHER History: Reports: Endometriosis, Other OB/BYN History: x 2 Musculoskeletal History: Reports: Arthritis, Osteoarthritis Neurological History: Reports: Migraines, Other (See Below) Other Neuro History: trigeminal neuralgia with craniectomy, suboccipatial with neurostimulator electrodes Psychiatric History: Reports: Anxiety, Depression Endocrine/Metabolic History: Reports: Obesity/BMI 30+ Hematologic History: Reports: Anticoagulation Therapy Immunologic History: Reports: None Oncologic (Cancer) History: Reports: None Dermatologic History: Reports: None - Infectious Disease History Infectious Disease History: Reports: C-Difficile Other Infectious Disease History: 2016 - Past Surgical History Head Surgeries/Procedures: Reports: Craniotomy HEENT Surgical History: Reports: LASIK, Oral Surgery, Other (See Below) Other HEENT Surgeries/Procedures: surgical "buffer" placed between trigeminal nerve and proximal blood vessels that were pressing into it. Cardiovascular Surgical History: Reports: None Respiratory Surgical History: Reports: None GI Surgical History: Reports: Appendectomy, Cholecystectomy, Colonoscopy Female Surgical History: Reports: Section, Hysterectomy, Oophorectomy Male Surgical History: Reports: None Endocrine Surgical History: Reports: None Neurological Surgical History: Reports: Other (See Below) Other Neurological Surgeries/Procedures: craniectomy approx 20 years ago Musculoskeletal Surgical History: Reports: Hip Replacement, Knee Replacement, Shoulder Surgery, Other (See Below) Oncologic Surgical History: Reports: None Dermatological Surgical History: Reports: None - SUBSTANCE USE Tobacco Use Status *Q: Current Every Day Tobacco User Recreational Drug Use History: No - HOME MEDS Home Medications: Home Meds ALPRAZolam [Xanax] 0.5 mg PO TID PRN 01/28/16 [History] FLUoxetine HCl [Fluoxetine HCl] 80 mg PO DAILY 07/06/17 [History] Cholecalciferol (Vitamin D3) [Vitamin D3] 5,000 unit PO DAILY 11/30/18 [History] Calcium Carbonate [Calcium] 600 mg PO BID 01/17/21 [History] Cranberry Fruit Extract [Cranberry] 500 mg PO BID 01/17/21 [History] Lactobacillus Acidophilus [Probiotic] 1 cap PO DAILY 01/17/21 [History] Multivitamin 1 tab PO DAILY 01/17/21 [History] Cyclobenzaprine [Flexeril] 10 mg PO BID PRN #20 tab 08/13/21 [Rx] Rivaroxaban [Xarelto] 10 mg PO DAILY #30 tab 08/13/21 [Rx] oxyCODONE 5 - 15 mg PO Q4H PRN #40 tab 08/13/21 [Rx] - CURRENT (IN HOUSE) MEDS Current Meds: Current Medications Acetaminophen (Acetaminophen 325 Mg Tab) 975 mg PO ONETIME ODALYS Stop: 08/14/21 13:00 Morphine Sulfate 8 mg/Epinephrine HCl 0.3 mg/Cefuroxime Sodium 750 mg/Ketorolac Tromethamine 30 mg/Sodium Chloride 7.9 ml 0 mg .XX ASDIRECTED PRN PRN Reason: Pain Stop: 08/14/21 18:00 Lactated Ringer's (Ringers, Lactated) 1,000 mls @ 125 mls/hr IV ASDIRECTED ODALYS Stop: 08/14/21 23:00 Lidocaine/Sodium Bicarbonate (Lidocaine 1%/Sod Bicarbonate In Ns 8.4% 1 Ml Syringe) 0.25 ml IDERM ONETIME PRN PRN Reason: Prior to IV Start Stop: 08/14/21 18:00 Oxycodone HCl (Oxycodone Er 10 Mg Tab.Er) 10 mg PO ONETIME ODALYS Stop: 08/14/21 13:00 Pregabalin (Pregabalin 25 Mg Cap) 50 mg PO ONETIME ODALYS Stop: 08/14/21 13:00 Sodium Chloride (Sodium Chloride 0.9% 10 Ml Syringe) 10 ml FLUSH ASDIRECTED PRN PRN Reason: Keep Vein Open Stop: 08/14/21 18:00 Discontinued Medications Epinephrine HCl (Epinephrine 1 Mg/Ml Sdv) Confirm Administered Dose 1 mg .ROUTE .STK-MED ONE Stop: 08/14/21 07:35 Ropivacaine (Ropivacaine 0.5% 5 Mg/Ml 30 Ml Sdv) Confirm Administered Dose 30 ml .ROUTE .STK-MED ONE Stop: 08/14/21 07:35
[2021-08-14] MEDS ORDERED: Propofol 200 MG/20 ML SDV ONE (07:59)
[2021-08-14] MEDS ORDERED: ceFAZolin 1 GM Vial ONE (07:59)
[2021-08-14] MEDS ORDERED: Midazolam 1 MG/ML 2 ML SDV ONE (08:00)
[2021-08-14] MEDS ORDERED: Lidocaine 1% 4 ML ONE (08:00)
[2021-08-14] MEDS ORDERED: Rocuronium 50 MG/5 ML Vial ONE (08:00)
[2021-08-14] MEDS ORDERED: fentaNYL 250 MCG/5 ML SDV ONE (08:00)
[2021-08-14] MEDS ORDERED: Vancomycin 1 GM SDV ONE (08:16)
[2021-08-14] MEDS ORDERED: HYDROmorphone 0.5 MG/0.5 ML Syringe IVPUSH PRN (08:51)
[2021-08-14] MEDS ORDERED: Ondansetron 4 MG/2 ML SDV IVPUSH PRN (08:51)
[2021-08-14] MEDS ORDERED: ePHEDrine 50 MG/ML SDV ONE ×2 (08:53→08:55)
[2021-08-14] MEDS ORDERED: Lactated Ringers 1,000 ML ONE ×2 (09:05→09:49)
[2021-08-14] MEDS ORDERED: HYDROmorphone 0.5 MG/0.5 ML Syringe ONE ×2 (09:10→09:23)
[2021-08-14] MEDS ORDERED: fentaNYL 100 MCG/2 ML SDV ONE (09:24)
[2021-08-14] MEDS ORDERED: Ondansetron 4 MG/2 ML SDV ONE (09:34)
[2021-08-14] MEDS ORDERED: Ketorolac 30 MG/ML SDV ONE (09:34)
--- NOTE | 2021-08-14 10:29 | PCM.POSTAN ---
POST ANESTHESIA ASSESSMENT - MENTAL STATUS Mental Status: Alert, Oriented - RESPIRATORY Respiratory Status: Respiratory Rate WNL, Airway Patent, O2 Saturation Stable, Supplemental Oxygen - GASTROINTESTINAL GI Status: No Symptoms - PAIN Pain Score: 4 - POST OP HYDRATION Hydration Status: Adequate & Stable
[2021-08-14] MEDS: fentaNYL 100 MCG/2 ML SDV IVPUSH PRN ×2 (10:36→10:57)
--- NOTE | 2021-08-14 11:29 | PCM.PRNOTE ---
- Free Text/Narrative Note: Right selective femoral nerve block at the adductor canal for post-procedure pain control under US guidance requested by Dr. Zapata. Time Out: 1030 Start: 1031 End: 1039 Chart reviewed. Consent signed. Questions answered. Appropriate monitors applied. Time out performed.Right mid-shaft femur identified with ultrasound, scanning medially of femur, the femoral artery in the adductor canal visualized, and the femoral nerve located laterally to the artery. The skin was prepped lateral to the ultrasound probe with chlorahexadine times two. The 21ga 4 insulated block needle was inserted under direct ultrasound guidance into the adductor canal. 30mL of 0.5% ropivacaine with 1:200,000 epinephrine was injected circumferentially around the nerve with intermittent negative aspiration noted. Patient tolerated the procedure well. Sterile technique noted along with sterile gloves, mask, and sterile probe cover. See picture on progress note and vital signs on nurses notes. Block completed in PACU. Aranza Maradiaga CRNA
--- NOTE | 2021-08-14 11:40 | CR ---
Right knee: AP and crosstable lateral views of the right knee were obtained. Comparison: Prior right knee CT study of 08/07/21. Right knee prosthesis is seen. Patellar prosthesis is also noted. Soft tissue air is present. No acute osseous abnormality is appreciated. Impression: 1. Satisfactory postoperative radiographic appearance of recently placed right knee prostheses. Diagnostic code #2
[2021-08-14] MEDS ORDERED: oxyCODONE 5 MG Tab PO PRN (12:50)
[2021-08-14] MEDS ORDERED: Cyclobenzaprine 10 MG Tab PO ONE (13:15)
[2021-08-14 15:14] VITALS: BP 102/68; PULSE 85
--- NOTE | 2021-08-28 07:15 | PCM.OPNOTE ---
- General Post-Op/Procedure Note Date of Surgery/Procedure: 08/14/21 Operative Procedure(s): right total knee arthroplasty with percy jennifer robotics Pre Op Diagnosis: right knee osteoarthrosis Post-Op Diagnosis: Same Anesthesia Technique: Local, MAC, Spinal Primary Surgeon: Jorge L Zapata Anesthesia Provider: Aranza Maradiaga Batchmaker: Melissa Sheriff Batchmaker: Jena Phoenix EBL in mLs: 500 Complications: None Condition: Good Free Text/Narrative:: 4 femur 5 tibia 9mm 32x10
--- NOTE | 2021-08-28 12:36 | OR ---
DATE OF OPERATION: 08/14/2021 SURGEON: Jorge L Zapata MD OPERATION PERFORMED: Right total knee arthroplasty with [place] [employer]. PREOPERATIVE DIAGNOSIS: Right knee osteoarthrosis. POSTOPERATIVE DIAGNOSIS: Right knee osteoarthrosis. ANESTHESIA: Local MAC with spinal. ANESTHESIA PROVIDER: Aranza Maradiaga CRNA. ASSISTANTS: Melissa Sheriff PA-C; and Jena Phoenix LPN. ESTIMATED BLOOD LOSS: 500 mL. COMPLICATIONS: None. CONDITION: Stable. IMPLANT: 1. [place] size 4 press-fit CR femur. 2. [place] size 5 press-fit tibial baseplate. 3. Janki size 5, 9 mm CS polyethylene insert. 4. Janki size 32 x 10 mm press-fit asymmetric patella. DESCRIPTION OF PROCEDURE: The patient was identified in the preop holding area. Proper site was marked and identified by the surgeon. The patient was taken back to the operating theater, where after adequate anesthesia, the patient's right lower extremity had a nonsterile tourniquet applied and then it was sterilely prepped and draped in the usual sterile fashion. OR time-out was performed. The patient received 2 g IV Ancef. Leg gibbons was then applied to the right lower extremity. At this time, the right lower extremity was exsanguinated. Tourniquet was insufflated to 250 mmHg. Standard anterior incision was made. Medial parapatellar arthrotomy was created. Deep fibers of the MCL were raised and anterior fat pad was resected. Attention was turned to the patella. Patella measured 24, it was resected to a 14 for a 32 x 10 mm patella. Drill holes were then drilled. Attention was then turned to the femur. Two 4.0 Schanz pins were placed intra-incisionally on the femur for the [employer] robotic array and then 2 more were placed on the tibia 3 fingerbreadths below the tibial tubercle. The [place] [employer] robotic arrays were placed on both the femur and the tibia at this time as well as checkpoints on the femur and tibia. Hip center rotation was then obtained. The medial and lateral malleoli were marked as well as the checkpoints were marked for the [employer] robotic plan. The patient's knee was brought to full extension, varus and valgus stresses were applied, and then into 90 degrees of flexion. [place] [employer] robotic plan for this patient was then undertaken to match the flexion and extension gaps. A straight saw blade was then brought in. Tibial cut was completed as well as an anterior femoral cut, anterior chamfer cut, and posterior femoral cut. Saw blade was then switched out and the distal femoral cut as well as the posterior chamfer cut was completed. All bony fragments were removed. At this time, medial and lateral menisci were resected as well as any posterior osteophytes. Attention was turned to the tibia. The size 5 trial baseplate was placed on the tibia and a size 4 trial femur was placed on the femur. A 5, 9 mm trial poly was placed. The patient's knee was brought to full extension and flexion. Varus and valgus stresses were applied, was found to be stable with no instability. No signs of liftoff or loosening on the tibial baseplate. At this time, femoral drill holes were drilled, and the tibia was stamped and drilled in proper rotation. All trial implants were then removed. The size 5 tibial baseplate was impacted into place, size 4 femoral component was impacted into place, and then a 5, 9 mm CS polyethylene insert was impacted into place. A 32 x 10 mm press-fit asymmetric patella was then press-fit into place. The tourniquet was deflated. Bleeders were cauterized. 1 L pulse lavage irrigation with Ancef was irrigated through the knee along with 400 mL Irrisept irrigation. Periarticular injection was completed. Topical tranexamic acid and vancomycin powder were applied. All checkpoints and pins were removed. At this point, a #2 barbed suture was used for closure of the medial parapatellar arthrotomy in flexion. 2-0 Vicryl and Stratafix were used for subcutaneous closure. Prineo was used for cutaneous closure. 3-0 nylons were used for closure of the pin holes on the tibia. The patient had a sterile soft dressing applied. The patient had an BRENT wrap applied and was sent to PACU in stable condition. The patient tolerated the procedure well. MMODAL /[id number]
== END 2021-08-14 14:40 | disposition home or self-care (01) ==
LOC: JD.SDS 06:57
PROVIDERS: ATTEND Orthopaedic Surgery
DX: M17.11 Unilateral primary osteoarthritis, right knee (principal); G43.109 Migraine with aura, not intractable, without status migrainosus; F41.9 Anxiety disorder, unspecified; F17.210 Nicotine dependence, cigarettes, uncomplicated; Z90.49 Acquired absence of other specified parts of digestive tract; Z98.890 Other specified postprocedural states; Z79.899 Other long term (current) drug therapy; Z88.2 Allergy status to sulfonamides; Z88.8 Allergy status to other drugs, medicaments and biological substances
CPT/HCPCS: 01402; 73560-26-RT; 73560-RT; 97161-GP; A9270-GY; C1713; C1776; J0171; J0690; J0697; J1170; J1885; J2250; J2270; J2405; J2704; J2795; J3010; J3370; J7120

== ENCOUNTER 2024-02-18 19:35 | Emergency (ER) | payer OTHER ==
[2024-02-18] MEDS: Ketorolac 30 MG/ML SDV IVPUSH ONE (20:36)
[2024-02-18] MEDS: Sodium Chloride 0.9% 1,000 ML IV STA (20:37)
[2024-02-18 20:38] LABS: BASOPHILS ABSOLUTE AUTO 0.1 K/mm3 (0.0-0.2); BASOPHILS PERCENT AUTO 0.5 % (0.0-1.0); EOSINOPHILS ABSOLUTE AUTO 0.1 K/mm3 (0.0-0.4); EOSINOPHILS PERCENT AUTO 0.7 % (0.0-6.0); HEMATOCRIT 45.7 % (37.0-47.0); HEMOGLOBIN 15.1 gm/dl (12.0-16.0); IMMATURE GRAN ABSOLUTE AUTO 0.05 K/mm3 (0.00-0.05); IMMATURE GRAN PERCENT AUTO 0.4 % (0.0-0.4); LYMPHOCYTES ABSOLUTE AUTO 2.3 K/mm3 (1.0-4.8); LYMPHOCYTES PERCENT AUTO 18.3 % (24.0-44.0); MEAN CORPUSCULAR HEMOGLOBIN 31.4 pg (28.0-32.0); MEAN PLATELET VOLUME 10.2 fl (9.4-12.3); MONOCYTES ABSOLUTE AUTO 1.1 K/mm3 (0.0-0.8); MONOCYTES PERCENT AUTO 8.6 % (0.0-8.0); NEUTROPHILS ABSOLUTE AUTO 8.8 K/mm3 (1.8-7.7); NEUTROPHILS PERCENT AUTO 71.5 % (41.0-71.0); PLATELET COUNT,PLT 282 K/mm3 (150-400); RED BLOOD CELL COUNT 4.81 M/mm3 (4.10-5.30); WHITE BLOOD CELL COUNT,WBC 12.32 K/mm3 (3.9-11.3)
[2024-02-18] MEDS: Sodium Chloride 0.9% 10 ML Syringe FLUSH PRN (20:38)
[2024-02-18 20:47] LABS: APPEARANCE,URINE CLEAR (Clear); BILIRUBIN,URINE NEGATIVE (Negative); COLOR,URINE YELLOW (Yellow); GLUCOSE,URINE NEGATIVE (Negative); KETONES,URINE NEGATIVE (Negative); LEUKOCYTE ESTERASE,URINE NEGATIVE (Negative); NITRITE,URINE NEGATIVE (Negative); OCCULT BLOOD,URINE TRACE-INTACT (Negative); PH,URINE 6.5 (5.0-8.0); PROTEIN,URINE NEGATIVE (Negative); UROBILINOGEN,URINE 0.2 (0.2-1.0)
[2024-02-18 20:56] LABS: BACTERIA,URINE FEW /hpf (FEW); MUCUS,URINE FEW /hpf (FEW); SQUAMOUS EPITHELIAL CELLS,UR 0-5 /hpf (0-5); WBC,URINE 0-5 /hpf (0-5)
[2024-02-18 20:58] LABS: A/G RATIO 1.4 (1-2); ALBUMIN 4.5 g/dl (3.4-5.0); ANION GAP 13.5 (5-15); BILIRUBIN TOTAL 0.5 mg/dL (0.2-1.0); BUN/CREATININE RATIO 8.3 (14-18); C-REACTIVE PROTEIN 0.39 mg/dL (<0.30); CALCIUM 9.5 mg/dL (8.5-10.1); CREATININE 1.2 mg/dL (0.55-1.02); EST CRCL DRUG DOSING (CG) 46.09 mL/min; POTASSIUM,K 3.5 mEq/L (3.5-5.1); PROTEIN TOTAL,TP 7.8 g/dl (6.4-8.2)
[2024-02-18] MEDS: Ondansetron 4 MG/2 ML SDV IVPUSH ONE (22:14)
[2024-02-18] MEDS: Acetaminophen/HYDROcodone 325-5 MG Tab PO ONE (22:14)
[2024-02-18] MEDS: Tamsulosin 0.4 MG Cap.ER PO ONE (22:15)
[2024-02-18 22:27] VITALS: BP 136/85; PULSE 65
== END 2024-02-18 22:22 | disposition home or self-care (01) ==
LOC: JD.ED 19:35
DX: N13.2 Hydronephrosis with renal and ureteral calculous obstruction (principal); E66.9 Obesity, unspecified; Z88.1 Allergy status to other antibiotic agents; Z88.2 Allergy status to sulfonamides; Z91.041 Radiographic dye allergy status; Z88.8 Allergy status to other drugs, medicaments and biological substances; Z79.899 Other long term (current) drug therapy; Z90.49 Acquired absence of other specified parts of digestive tract; Z68.30 Body mass index [BMI] 30.0-30.9, adult
CPT/HCPCS: 36415; 74176; 80053; 81001; 85025; 86140; 96374; 96375; 99284; A9270; J1885; J2405; J3490; J7030

== ENCOUNTER 2025-04-29 20:54 | Emergency (ER) | payer OTHER ==
[2025-04-29 21:58] LABS: BASOPHILS ABSOLUTE AUTO 0.1 K/mm3 (0.0-0.2); BASOPHILS PERCENT AUTO 0.6 % (0.0-1.0); EOSINOPHILS ABSOLUTE AUTO 0.1 K/mm3 (0.0-0.4); EOSINOPHILS PERCENT AUTO 0.7 % (0.0-6.0); IMMATURE GRAN ABSOLUTE AUTO 0.05 K/mm3 (0.00-0.05); IMMATURE GRAN PERCENT AUTO 0.3 % (0.0-0.4); LYMPHOCYTES ABSOLUTE AUTO 3.0 K/mm3 (1.0-4.8); LYMPHOCYTES PERCENT AUTO 19.1 % (24.0-44.0); MEAN PLATELET VOLUME 9.9 fl (9.4-12.3); MONOCYTES ABSOLUTE AUTO 1.2 K/mm3 (0.0-0.8); MONOCYTES PERCENT AUTO 7.4 % (0.0-8.0); NEUTROPHILS ABSOLUTE AUTO 11.4 K/mm3 (1.8-7.7); NEUTROPHILS PERCENT AUTO 71.9 % (41.0-71.0); NRBC ABSOLUTE 0.00 (0.00-0.02); NRBC PERCENT 0.0 % (0.0-0.2); PLATELET COUNT,PLT 284 K/mm3 (150-400); RED BLOOD CELL COUNT 4.51 M/mm3 (4.10-5.30); WHITE BLOOD CELL COUNT,WBC 15.90 K/mm3 (3.9-11.3)
[2025-04-29 22:06] LABS: APPEARANCE,URINE CLEAR (Clear); GLUCOSE,URINE TRACE (Negative); OCCULT BLOOD,URINE 2+ (Negative)
[2025-04-29 22:16] LABS: SQUAMOUS EPITHELIAL CELLS,UR 0-5 /hpf (0-5); WBC CLUMPS,URINE RARE /hpf (NOT SEEN)
[2025-04-29 22:21] LABS: A/G RATIO 1.2 (1-2); ALANINE AMINOTRANSFERASE,ALT 34.0 U/L (14-59); ASPARTATE AMNIOTRANSFERASE,AST 22.0 U/L (15-37); BILIRUBIN TOTAL 0.3 mg/dL (0.2-1.0); BLOOD UREA NITROGEN,BUN 22.0 mg/dL (7-18); CARBON DIOXIDE,CO2 27.0 mEq/L (21-32); CHLORIDE,CL 100.0 mEq/L (98-107); CREATININE 1.1 mg/dL (0.55-1.02); EST CRCL DRUG DOSING (CG) 47.72 mL/min; ESTIMATED GFR 57.0 mL/min (>60); GLUCOSE RANDOM 91.0 mg/dL (70-99); POTASSIUM,K 3.6 mEq/L (3.5-5.1); PROTEIN TOTAL,TP 7.4 g/dl (6.4-8.2); SODIUM,NA 136.0 mEq/L (136-145)
[2025-04-29] MEDS ORDERED: Sodium Chloride 0.9% 10 ML Syringe FLUSH PRN (22:54)
[2025-04-29] MEDS: Sodium Chloride 0.9% 10 ML Syringe FLUSH PRN (23:07)
[2025-04-29] MEDS: Iopamidol 612 MG/ML 100 ML Bottle IVPUSH ONE (23:07)
[2025-04-30 00:43] VITALS: BP 119/65; PULSE 68
== END 2025-04-30 00:41 | disposition home or self-care (01) ==
LOC: JD.ED 20:54
DX: N30.01 Acute cystitis with hematuria (principal); E78.00 Pure hypercholesterolemia, unspecified; Z91.041 Radiographic dye allergy status; Z88.2 Allergy status to sulfonamides; Z88.1 Allergy status to other antibiotic agents; Z88.8 Allergy status to other drugs, medicaments and biological substances; Z79.899 Other long term (current) drug therapy
CPT/HCPCS: 36415; 74177; 80053; 81001; 85025; 96361; 96374; 99284; J0696; J7030; Q9967